=== PATIENT | female | born 1930 | race Hispanic/Latino ===

== ENCOUNTER 2018-06-22 17:54 | Inpatient (IN) | payer MEDICARE ==
[~2018-06-22] VITALS: Ht 160 cm; Wt 58.1 kg
[~2018-06-22 17:54] MED LIST: ASPIR 8181 MG PO; LEVOTHYROXINE100 MCG PO; LOSARTAN-HCTZ1 EAC2 PO; NORCO 5-325 TA1 EACH PO; SIMVASTATIN20 MG PO
--- NOTE | 2018-06-22 18:38 | NUR ---
DR. STEINBERG AT BEDSIDE FOR PT EVAL AT THIS TIME.
--- NOTE | 2018-06-22 18:45 | NUR ---
RADIOLOGY AT BEDSIDE AT THIS TIME.
--- NOTE | 2018-06-22 19:06 | Diagnostic Imaging Report ---
Radiographs of the right foot - 3 views HISTORY: Pain COMPARISON: None available. FINDINGS: Bones: No acute displaced fracture. Diffuse osteopenia. Osseous alignment is within normal limits. Joints: Scattered degenerative change. No osseous erosion. Posterior and inferior calcaneal bone spurs. Soft tissues: Soft tissue swelling IMPRESSION: Diffuse osteopenia, scattered degenerative change and soft tissue swelling. Signed by: Dr. Jeffrey Hampton M.D. on 06/22/2018 7:03 PM
[2018-06-22 19:26] LABS: BASOPHILS # (AUTO) 0.1 (0.0-0.1); EOSINOPHILS # (AUTO) 0.1 (0.0-0.4); EOSINOPHILS % 0.7 % (0.0-6.0); HEMATOCRIT 36.8 % (34.2-44.1); HEMOGLOBIN 11.8 g/dL (12.0-16.0); LYMPHOCYTES # (AUTO) 1.1 (1.0-3.2); LYMPHOCYTES % 10.2 % (18.0-39.1); MEAN CORPUSCULAR HEMOGLOBIN 27.8 pg (28-32); MEAN CORPUSCULAR HGB CONC 32.1 g/dL (31-35); MEAN CORPUSCULAR VOLUME 86.6 fL (81-99); MONOCYTES # (AUTO) 1.1 (0.2-0.8); MONOCYTES % 10.7 % (4.4-11.3); NEUTROPHILS # (AUTO) 7.9 (2.1-6.9); NEUTROPHILS % 76.2 % (38.7-80.0); PLATELET COUNT 146 x10e3/uL (140-360); RED BLOOD COUNT 4.25 x10e6/uL (3.6-5.1); RED CELL DISTRIBUTION WIDTH 15.7 % (11.7-14.4)
[2018-06-22 19:27] LABS: CLARITY,URINE SL CLOUDY (CLEAR); COLOR,URINE YELLOW (YELLOW); LEUKOCYTE ESTERASE ,URINE 1+ (NEGATIVE)
[2018-06-22 19:28] LABS: BILIRUBIN,URINE NEGATIVE (NEGATIVE); KETONES,URINE NEGATIVE (NEGATIVE); NITRITE,URINE NEGATIVE (NEGATIVE); PROTEIN,URINE DIPSTICK NEGATIVE (NEGATIVE); URINE UROBILINOGEN 0.2 mg/dL (0.2 - 1)
--- NOTE | 2018-06-22 19:30 | NUR ---
DR. ALVAREZ AT BEDSIDE AT THIS TIME FOR PT EVAL.
[2018-06-22 19:47] LABS: ALBUMIN 3.8 g/dL (3.5-5.0); ALBUMIN/GLOBULIN RATIO 1.4 (0.8-2.0); ANION GAP 18.4 mmol/L (8-16); CREATININE, SERUM 1.13 mg/dL (0.57-1.11); MAGNESIUM 1.8 MG/DL (1.3-2.1); PHOSPHORUS 2.1 MG/DL (2.3-4.7); POTASSIUM 3.4 mmol/L (3.5-5.1)
[2018-06-22 19:49] LABS: CALCIUM 13.5 mg/dL (8.4-10.2)
[2018-06-22] MEDS ORDERED: DEXTROSE 50% SYRINGE 50 ML IV STA (19:50)
[2018-06-22] MEDS ORDERED: SODIUM CHLORIDE 0.9% 1000ML 1,000 ML IV STA (19:50)
[2018-06-22 19:54] LABS: CREATINE KINASE MB 2.4 ng/mL (0-5.0)
[2018-06-22 20:06] LABS: THYROID STIMULATING HORMONE 0.758 uIU/mL (0.350-4.940)
--- NOTE | 2018-06-22 20:13 | Diagnostic Imaging Report ---
EXAMINATION: CHEST SINGLE (PORTABLE) INDICATION: Fall ^fall ^[id number] ^1952 COMPARISON: None FINDINGS: TUBES and LINES: None. LUNGS: Lungs are well inflated. Perihilar peribronchial hazy opacity could be due to bronchitis. There is no evidence of pneumonia or pulmonary edema. PLEURA: No pleural effusion or pneumothorax. HEART AND MEDIASTINUM: The cardiomediastinal silhouette is unremarkable. BONES AND SOFT TISSUES: No acute osseous lesion. Soft tissues are unremarkable. UPPER ABDOMEN: No free air under the diaphragm. IMPRESSION: Perihilar peribronchial hazy opacity could be due to bronchitis. Signed by: Dr. Jeffrey Hampton M.D. on 06/22/2018 8:10 PM
--- NOTE | 2018-06-22 20:19 | Diagnostic Imaging Report ---
EXAMINATION: Head CT without contrast. HISTORY:Fall COMPARISON:None. TECHNIQUE: Multidetector axial images were obtained from the foramen magnum to the vertex without contrast. The images were reconstructed using brain and bone algorithms. Thin section brain images were reformatted into coronal and sagittal planes. Dose modulation, iterative reconstruction, and/or weight based adjustment of the mA/kV was utilized to reduce the radiation dose to as low as reasonably achievable. Intravenous contrast: None IMAGE QUALITY: Acceptable. FINDINGS: Skull/scalp: No lytic or blastic. lesions. No surgical changes. Parenchyma: There is nonspecific few, scattered supratentorial white matter hypodensity are likely related to small vessel ischemic changes. No acute hemorrhage, mass or acute major vascular territorial infarct. Arteries: No density suggestive of thrombosis. Dural sinuses: No abnormal density suggestive of thrombosis. Ventricles: Mild compensated dilatation due to volume loss. No hydrocephalus. Extra-axial spaces: No abnormal density. Brain volume: Generalized age-related cerebral volume loss. Craniocervical junction: No mass, Chiari malformation, or basilar invagination. Sella: No mass. Paranasal/mastoid sinuses: Mild mucosal thickening in left sphenoid sinus. IMPRESSION: 1. No acute posttraumatic intracranial abnormality. 2. Mild supratentorial white matter microvascular ischemic changes. 3. Generalized age-related cerebral volume loss. Signed by: Dr. Zaynab Bradley M.D. on 06/22/2018 8:15 PM
--- NOTE | 2018-06-22 20:24 | Diagnostic Imaging Report ---
History: Fall. Comparison studies: None Technique: Axial images were obtained through the cervical region.. Coronal and sagittal images reconstructed from the axial data. Dose modulation, iterative reconstruction, and/or weight based adjustment of the mA/kV was utilized to reduce the radiation dose to as low as reasonably achievable. Intravenous contrast: None Findings: Fractures: None. Soft tissue injuries: None. Atlantoaxial articulation: Intact. Alignment: Normal lordosis. No scoliosis. Cervicomedullary junction: No abnormalities. The foramen magnum is patent. Soft tissues: No abnormalities. Vertebrae: No fractures, infection or neoplasm. Degenerative changes: C3-C4: Posterior disc osteophyte complex results in mild canal stenosis. C4-C5: Posterior disc osteophyte complex results in mild canal stenosis. Mild right and moderate left foraminal stenosis due to facet and uncovertebral arthrosis. C5-C6: Moderate degenerative disc disease. Posterior disc osteophyte complex results in mild canal stenosis. Moderate bilateral foraminal stenosis due to facet and uncovertebral arthrosis. C6-C7: Mild degenerative disc disease. Mild left foraminal stenosis due to facet and uncovertebral arthrosis. IMPRESSION: 1. No acute cervical spine fracture or dislocation. 2. Ligament, spinal cord and or vascular abnormalities cannot be excluded on the basis of this examination. 3. Cervical spondylosis as detailed above. Signed by: Dr. Zaynab Bradley M.D. on 06/22/2018 8:20 PM
[2018-06-22 20:50] LABS: INR 1.06; PARTIAL THROMBOPLASTIN TIME 23.2 seconds (23.8-35.5); PROTHROMBIN TIME 14.3 seconds (11.9-14.5)
[2018-06-22] MEDS: CEFTRIAXONE SOD 1 GM/NS 50 ML 50 ML IV SCH (21:02)
[2018-06-22] MEDS ORDERED: D5NS/KCL 20MEQ 1,000 ML IV ONE (21:15)
[2018-06-22] MEDS ORDERED: DEXTROSE 50% SYRINGE 50 ML IV PRN (21:15)
[2018-06-22] MEDS ORDERED: ONDANSETRON HCL INJ 2MG/ML 2ML 2 MG/ML VIAL IV PRN (21:15)
--- OUTSIDE RECORDS SUMMARY | 2018-06-22 21:34 | XMS REPORT ---
[facility] Address Unknown Phone Unavailable Care Team Providers Care Forestry Conservation Worker Name Role Phone Lolly ALVAREZ Unavailable Unavailable Problems This patient has no known problems. Allergies, Adverse Reactions, Alerts This patient has no known allergies or adverse reactions. Medications This patient has no known medications. Results Test Description Test Time Test Comments Text Results Atomic Results Result Comments CT CERVICAL SPINE WO 2018-06-22 20:16:00 [place] [address] Patient Name: GENNA GÓMEZ MR #: [id number] : 1930 Age/Sex: 87/F Req #: [id number] Adm Physician: Ordered by: TREVOR ALVAREZ MD Report #: [id number] Location: ER Room/Bed: Procedure: [id number] CT/CT CERVICAL SPINE WO Exam Date: 06/22/18 Exam Time: 1954 REPORT STATUS: Signed History: Fall. Comparison studies: None T echnique: Axial images were obtained through the cervical region.. Coronal and sagittal images reconstructed from the axial data. Dose modulation, iterative reconstruction, and/or weight based adjustment of the mA/kV was utilized to reduce the radiation dose to as low as reasonably achievable. Intravenous contrast: None Findings: Fractures: None. Soft tissue injuries: None. Atlantoaxial articulation: Intact. Alignment: Normal lordosis. No scoliosis. Cervicomedullary junction: No abnormalities. The foramen magnum is patent. Soft tissues: No abnormalities. Vertebrae: No fractures, infection or neoplasm. Degenerative changes: C3-C4: Posterior disc osteophyte complex results in mild canal stenosis. C4-C5: Posterior disc osteophyte complex results in mild canal stenosis. Mild right and moderate left foraminal stenosis due to facet and uncovertebral arthrosis. C5-C6: Moderate degenerative disc disease. Posterior disc osteophyte complex results in mild canal stenosis. Moderate bilateral foraminal stenosis due to facet and uncovertebral arthrosis. C6-C7: Mild degenerative disc disease. Mild left foraminal stenosis due to facet and uncovertebral arthrosis. IMPRESSION: 1. No acute cervical spine fracture or dislocation. 2. Ligament, spinal cord and or vascular abnormalities cannot be excluded on the basis of this examination. 3. Cervical spondylosis as detailed above. Signed by: Dr. Zaynab Bradley M.D. on 06/22/2018 8:20 PM Dictated By: ZAYNAB BRADLEY MD 19 Transcribed By: SILVINO on 06/22/182019 COPY TO: TREVOR ALVAREZ MD CHEST SINGLE (PORTABLE) 2018-06-22 20:09:00 [place] [address] Patient Name: GENNA GÓMEZ MR #: [id number] : 1930 Age/Sex: 87/F Req #: [id number] Adm Physician: Ordered by: TREVOR ALVAREZ MD Report #: [id number] Location: ER Room/Bed: Procedure: [id number] DX/CHEST SINGLE (PORTABLE) Exam Date: 06/22/18 Exam Time: 1952 REPORT STATUS: Signed EXAMINATION: CHEST SINGLE (PORTABLE) IN DICATION: Fall [id number] COMPARISON: None FINDINGS: TUBES and LINES: None. LUNGS: Lungs are well inflated. Perihilar peribronchial hazy opacity could be due to bronchitis. There is no evidence of pneumonia or pulmonary edema. PLEURA: No pleural effusion or pneumothorax. HEART AND MEDIASTINUM: The cardiomediastinal silhouette is unremarkable. BONES AND SOFT TISSUES: No acute osseous lesion. Soft tissues are unremarkable. UPPER ABDOMEN: No free air under the diaphragm. IMPRESSION: Perihilar peribronchial hazy opacity could be due to bronchitis. Signed by: Dr. Jeffrey Hampton M.D. on 06/22/2018 8:10 PM Dictated By: JEFFREY HAMPTON MD, MD 09 Transcribed By: SILVINO on 06/22/182009 COPY TO: TREVOR ALVAREZ MD CT BRAIN WO 2018-06-22 20:08:00 [place] [address] Patient Name: GENNA GÓMEZ MR #: [id number] : 1930 Age/Sex: 87/F Req #: [id number] Adm Physician: Ordered by: TREVOR ALVAREZ MD Report #: [id number] Location: ER Room/Bed: Procedure: [id number] CT/CT BRAIN WO Exam Date: Exam Time: REPORT STATUS: Signed EXAMINATION: Head CT without contrast. HISTORY:Fall COMPAR DIMITRI:None. TECHNIQUE: Multidetector axial images were obtained from the foramen magnum to the vertex without contrast. The images were reconstructed using brain and bone algorithms. Thin section brain images were reformatted into coronal and sagittal planes. Dose modulation, iterative reconstruction, and/or weight based adjustment of the mA/kV was utilized to reduce the radiation dose to as low as reasonably achievable. Intravenous contrast: None IMAGE QUALITY: Acceptable. FINDINGS: Skull/scalp: No lytic or blastic. lesions. No surgical changes. Parenchyma: There is nonspecific few, scattered supratentorial white matter hypodensity are likely related to small vessel ischemic changes. No acute hemorrhage, mass or acute major vascular territorial infarct. Arteries: No density suggestive of thrombosis. Dural sinuses: No abnormal density suggestive of thrombosis. Ventricles: Mild compensated dilatation due to volume loss. No hydrocephalus. Extra-axial spaces: No abnormal density. Brain volume: Generalized age-related cerebral volume loss. Craniocervical junction: No mass, Chiari malformation, or basilar invagination. Sella: No mass. Paranasal/mastoid sinuses: Mild mucosal thickening in left sphenoid sinus. IMPRESSION: 1. No acute posttraumatic intracranial abnormality. 2. Mild supratentorial white matter microvascular ischemic changes. 3. Generalized age-related cerebral volume loss. Signed by: Dr. Zaynab Bradley M.D. on 06/22/2018 8:15 PM Dictated By: ZAYNAB BRADLEY MD 14 Transcribed By: SILVINO on 06/22/182014 COPY TO: TREVOR ALVAREZ MD FOOT RIGHT COMPLETE 2018-06-22 19:02:00 [place] [address] Patient Name: GENNA GÓMEZ MR #: [id number] : 1930 Age/Sex: 87/F Req #: [id number] Adm Physician: Ordered by: MAURISIO STEINBERG MD Report #: [id number] Location: Room/Bed: Procedure: [id number] DX/FOOT RIGHT COMPLETE Exam Date: 06/22/18 Exam Time: 1845 REPORT STATUS: Signed Radiographs of the right foot - 3 views HISTORY: Pain COMPARISON: None available. FINDINGS: Bones: No acute displaced fracture. Diffuse osteopenia. Osseous alignment is within normal limits. Joints: Scattered degenerative change. No osseous erosion. Posterior and inferior calcaneal bone spurs. Soft tissues: Soft tissue swelling IMPRESSION: Diffuse osteopenia, scattered degenerative change and soft tissue swelling. Signed by: Dr. Jeffrey Hampton M.D. on 06/22/2018 7:03 PM Dictated By: JEFFREY HAMPTON MD, MD 02 Transcribed By: SILVINO on 06/22/181902 COPY TO: MAURISIO STEINBERG MD
--- NOTE | 2018-06-22 22:20 | NUR ---
Patient received via stretcher from ER accompanied by her son. AAO x 2. Admission history obtained mostly from son. Initial physical assessment conducted. Patient oriented to room, call light and plan of care. Fall precautions implemented. Patient instructed to call for assistance when needed. Call light within reach.
[2018-06-22 22:23] VITALS: BP 115/76
[2018-06-22 22:30] VITALS: BP 115/76
[2018-06-22 23:28] VITALS: BP 115/76
[2018-06-22] MEDS ORDERED: METOPROLOL SUCC50 MG PO ×2 (23:38→23:39)
[2018-06-22] MEDS ORDERED: CALTRATE PLUS1 EACH (23:38)
[2018-06-22] MEDS ORDERED: CALTRATE 600 W1 EACH (23:40)
[2018-06-23] VITALS (7 sets, daily range): BP systolic 102–119; BP diastolic 58–74
--- NOTE | 2018-06-23 01:21 | NUR ---
Dr. Benedict Baig here to see patient. New order received.
--- NOTE | 2018-06-23 03:37 | NUR ---
Blood specimen sent to lab for analysis of cardiac enzymes.
[2018-06-23 04:49] LABS: BASOPHILS # (AUTO) 0.1 (0.0-0.1); BASOPHILS % 1.1 % (0.0-1.0); EOSINOPHILS # (AUTO) 0.2 (0.0-0.4); EOSINOPHILS % 2.1 % (0.0-6.0); HEMATOCRIT 32.6 % (34.2-44.1); HEMOGLOBIN 10.4 g/dL (12.0-16.0); LYMPHOCYTES # (AUTO) 1.1 (1.0-3.2); LYMPHOCYTES % 12.7 % (18.0-39.1); MEAN CORPUSCULAR HEMOGLOBIN 27.9 pg (28-32); MEAN CORPUSCULAR HGB CONC 31.9 g/dL (31-35); MEAN CORPUSCULAR VOLUME 87.4 fL (81-99); MONOCYTES % 12.2 % (4.4-11.3); NEUTROPHILS % 70.9 % (38.7-80.0); PLATELET COUNT 118 x10e3/uL (140-360); RED BLOOD COUNT 3.73 x10e6/uL (3.6-5.1); RED CELL DISTRIBUTION WIDTH 15.6 % (11.7-14.4)
[2018-06-23 05:07] LABS: ALANINE AMINOTRANSFERASE 9 IU/L (0-55); ALBUMIN 3.1 g/dL (3.5-5.0); ALBUMIN/GLOBULIN RATIO 1.4 (0.8-2.0); ALKALINE PHOSPHATASE 65 IU/L (40-150); ANION GAP 10.4 mmol/L (8-16); BLOOD UREA NITROGEN 26 mg/dL (7-26); BUN/CREATININE RATIO 31 (6-25); CALCIUM 11.6 mg/dL (8.4-10.2); CARBON DIOXIDE 24 mmol/L (22-29); CHLORIDE 107 mmol/L (98-107); CREATININE, SERUM 0.84 mg/dL (0.57-1.11); EST GLOMERULAR FILTRATION RATE > 60 ML/MIN (60-); GLUCOSE 94 mg/dL (74-118); POTASSIUM 3.4 mmol/L (3.5-5.1); SODIUM 138 mmol/L (136-145)
[2018-06-23] MEDS: CEFTRIAXONE SOD 1 GM/NS 50 ML 50 ML IV SCH ×2 (08:50→21:00)
[2018-06-23 13:16] LABS: CREATINE KINASE MB 2.3 ng/mL (0-5.0)
--- NOTE | 2018-06-23 15:22 | NUR ---
Nutrition Screen Note RD Recommendation for Physician: Continue diet as ordered Plan of Care: RD following, monitoring for adequacy and tolerance Nutrition reason for involvement: Nutrition Risk Trigger - MST Primary Diagnose(s): Dehydration, Fall, hypercalemia, hypoglycemia Ht:63 in Wt:126.19lbs BMI:22.4 kg/m2 IBW:115lbs RD Assessment:(06/23/2018) Initial encounter with patient. Pt was confused and a close friend answered questions at the bedside. Pt has been having a poor Po intake and has been falling more frequently. Pt has lost wt gradually since the beginning of the year, but the actual amount is unknown. Pt does drink Ensure and was willing to drink at least two a day. Pt wears dentures and would benefit from soft foods. No nausea, vomiting or diarrhea at this time Current Diet: Regular diet Malnutrition Evaluation (06/23/2018) The patient does not meet criteria for a specified degree of malnutrition at this time. Will re-evaluate at follow-up as appropriate. Diet Education Needs Assessment: Diet education not indicated. Diet Adequacy: Meeting calorie needs, Meeting protein needs, Meeting fluid needs Tolerance: Tolerating PO Nutrition Care Level: Albin Rolon RD, LD, CNSC
--- NOTE | 2018-06-23 17:54 | NUR ---
Patient alert and responsive, rounds by attending and orders in place for PT eval and treat, voiding and skin care provided, repositioned in bed, tolerated all fluids and will monitor.
--- NOTE | 2018-06-23 19:25 | NUR ---
Patient received lying in bed. AAO x 2 . Patient had no c/o pain. Respirations even and non-labored. Fall precautions implemented. Patient instructed to call for assistance when needed. Call light within reach.
--- NOTE | 2018-06-23 19:57 | NUR ---
Patient's IV on left arm infiltrated. New IV inserted on right hand 20G. Patient tolerated well.
[2018-06-23] MEDS ORDERED: ACETAMINOPHEN 325 MG TAB PO PRN (20:30)
[2018-06-23] MEDS ORDERED: ACETAMINOPHEN/CODEINE 300MG - 30MG TAB PO PRN (20:30)
[2018-06-23] MEDS ORDERED: HYDRALAZINE HCL 20 MG/ML VIAL IV PRN (20:30)
[2018-06-23] MEDS: SIMVASTATIN 20 MG TAB PO SCH (21:00)
[2018-06-24] VITALS (9 sets, daily range): BP systolic 103–134; BP diastolic 55–82
[2018-06-24 05:17] LABS: BASOPHILS # (AUTO) 0.1 (0.0-0.1); BASOPHILS % 0.9 % (0.0-1.0); EOSINOPHILS # (AUTO) 0.2 (0.0-0.4); EOSINOPHILS % 1.9 % (0.0-6.0); HEMATOCRIT 32.8 % (34.2-44.1); HEMOGLOBIN 10.4 g/dL (12.0-16.0); LYMPHOCYTES % 11.6 % (18.0-39.1); MEAN CORPUSCULAR HEMOGLOBIN 27.9 pg (28-32); MEAN CORPUSCULAR HGB CONC 31.7 g/dL (31-35); MEAN CORPUSCULAR VOLUME 87.9 fL (81-99); NEUTROPHILS # (AUTO) 6.2 (2.1-6.9); NEUTROPHILS % 72.7 % (38.7-80.0); PLATELET COUNT 114 x10e3/uL (140-360); RED BLOOD COUNT 3.73 x10e6/uL (3.6-5.1); RED CELL DISTRIBUTION WIDTH 15.9 % (11.7-14.4)
[2018-06-24 05:33] LABS: ANION GAP 12.3 mmol/L (8-16); BLOOD UREA NITROGEN 14 mg/dL (7-26); BUN/CREATININE RATIO 17 (6-25); CALCIUM 11.2 mg/dL (8.4-10.2); CARBON DIOXIDE 22 mmol/L (22-29); CHLORIDE 108 mmol/L (98-107); CREATININE, SERUM 0.81 mg/dL (0.57-1.11); EST GLOMERULAR FILTRATION RATE > 60 ML/MIN (60-); GLUCOSE 80 mg/dL (74-118); POTASSIUM 3.3 mmol/L (3.5-5.1); SODIUM 139 mmol/L (136-145)
--- NOTE | 2018-06-24 06:28 | NUR ---
Patient attempted to get out of bed, pulled telemetry leads off twice and stated" I want to go home". Patient re-oriented to hospital surroundings and plan of care. Patient made comfortable and assisted into a recliner chair.
--- NOTE | 2018-06-24 07:15 | NUR ---
Shift report given to oncoming nurse.
--- NOTE | 2018-06-24 07:41 | NUR ---
Patient alert and appears confused, striping off her telemetry and refusing meds, attempting to climb OOB, attending called to notify at this time but bed alarms in place and will monitor
[2018-06-24] MEDS: LEVOTHYROXINE SODIUM 100 MCG TAB PO SCH (07:45)
--- NOTE | 2018-06-24 09:40 | NUR ---
Call back from Mary Ann and orders for KCL replacement PO
[2018-06-24] MEDS ORDERED: SODIUM PHOSPHATE 3 MMOL/ML INJ IV ONE (09:45)
[2018-06-24] MEDS: METOPROLOL SUCCINATE 50 MG TAB XL PO SCH (09:46)
[2018-06-24] MEDS: ASPIRIN 81 MG CHEW TAB PO SCH (09:46)
[2018-06-24] MEDS: CEFTRIAXONE SOD 1 GM/NS 50 ML 50 ML IV SCH ×2 (09:46→22:16)
[2018-06-24 09:58] LABS: LYMPHOCYTES % (MANUAL) 12 % (19-48); NEUTROPHILS % (MANUAL) 73 % (40-74)
[2018-06-24 09:59] LABS: BAND NEUTROPHILS % (MANUAL) 2 %; EOSINOPHILS % (MANUAL) 2 % (0-7); MONOCYTES % (MANUAL) 11 % (3.4-9.0); PLATELET ESTIMATE SLIGHTLY DECREASED; PLATELET MORPHOLOGY COMMENT NORMAL
[2018-06-24 10:00] LABS: RBC MORPHOLOGY COMMENT NORMAL
[2018-06-24] MEDS ORDERED: POTASSIUM CHLORIDE 20MEQ/15ML UDC PO ONE (10:00)
[2018-06-24] MEDS ORDERED: ONDANSETRON HCL 4 MG ORAL DISINTEGRATING TAB PO PRN (10:30)
[2018-06-24] MEDS ORDERED: SODIUM PHOSPHATE 10 MMOL in SODIUM CHLORIDE 0.9% 250ML 250 ML IV ONE (11:00)
--- NOTE | 2018-06-24 12:30 | NUR ---
Patient attempting to get OOB, assisted OOB and brought to nursing station with staff and then later ambulated with R/W about 50 feet, back to nursing station for supervision.
--- NOTE | 2018-06-24 16:47 | NUR ---
Patient assisted OOB to w/c for dinner, daughter in the room with patient
--- NOTE | 2018-06-24 19:28 | NUR ---
Patient received sitting in W/C by Nursing station. Reason: Several attempts to get out of bed. AAO x 2. No signs of pain or discomfort. Respirations even and unlabored. Will continue to monitor.
[2018-06-24] MEDS: SIMVASTATIN 20 MG TAB PO SCH (22:16)
[2018-06-25] VITALS (7 sets, daily range): BP systolic 88–109; BP diastolic 44–67
[2018-06-25 06:07] LABS: BASOPHILS # (AUTO) 0.1 (0.0-0.1); BASOPHILS % 0.9 % (0.0-1.0); EOSINOPHILS # (AUTO) 0.1 (0.0-0.4); EOSINOPHILS % 1.5 % (0.0-6.0); HEMATOCRIT 32.3 % (34.2-44.1); HEMOGLOBIN 10.2 g/dL (12.0-16.0); LYMPHOCYTES % 12.7 % (18.0-39.1); MEAN CORPUSCULAR HEMOGLOBIN 27.9 pg (28-32); MEAN CORPUSCULAR HGB CONC 31.6 g/dL (31-35); MEAN CORPUSCULAR VOLUME 88.5 fL (81-99); MONOCYTES # (AUTO) 0.9 (0.2-0.8); MONOCYTES % 11.9 % (4.4-11.3); NEUTROPHILS # (AUTO) 5.6 (2.1-6.9); PLATELET COUNT 107 x10e3/uL (140-360); RED BLOOD COUNT 3.65 x10e6/uL (3.6-5.1); RED CELL DISTRIBUTION WIDTH 16.2 % (11.7-14.4)
[2018-06-25 06:19] LABS: ANION GAP 11.5 mmol/L (8-16); BLOOD UREA NITROGEN 16 mg/dL (7-26); BUN/CREATININE RATIO 21 (6-25); CALCIUM 10.9 mg/dL (8.4-10.2); CARBON DIOXIDE 23 mmol/L (22-29); CHLORIDE 108 mmol/L (98-107); CREATININE, SERUM 0.77 mg/dL (0.57-1.11); EST GLOMERULAR FILTRATION RATE > 60 ML/MIN (60-); GLUCOSE 82 mg/dL (74-118); PHOSPHORUS 2.1 MG/DL (2.3-4.7); POTASSIUM 3.5 mmol/L (3.5-5.1); SODIUM 139 mmol/L (136-145)
[2018-06-25 08:19] LABS: CALCIUM IONIZED 1.5 mmol/L (1.09-1.30)
[2018-06-25] MEDS: ASPIRIN 81 MG CHEW TAB PO SCH (08:41)
[2018-06-25] MEDS: CEFTRIAXONE SOD 1 GM/NS 50 ML 50 ML IV SCH ×2 (08:41→21:50)
[2018-06-25] MEDS: LEVOTHYROXINE SODIUM 100 MCG TAB PO SCH (08:42)
[2018-06-25] MEDS: METOPROLOL SUCCINATE 50 MG TAB XL PO SCH (08:43)
--- NOTE | 2018-06-25 15:30 | NUR ---
Nutrition Screen Note RD Recommendation for Physician: -Continue regular diet. Plan of Care: RD following, monitoring for tolerance and adequacy Nutrition reason for involvement: MD consult/follow up Primary Diagnose(s): Dehydration, fall ,hyperglycemia, hypoglycemia PMH: Nothing recorded in H and P. Ht: 63 in Wt: 121 lb BMI: 21.5 kg/m2 IBW: [address] Assessment: (06/25) 87 YOF admitted for dehydration, fall, hyper and hypoglycemia. Pt is currently confused and altered, has an aide at bedside. Pt could not answer any questions, but aide reported pt only had a couple of bites of her B, today. Received MD consult regarding pt on 06/23, with no specific consult type recorded. Pt was seen by fellow dietitian earlier that day. Spoke to nurse about consult; she was unaware. Saw Ensure Enlive at bedside, aide reports pt sometimes drinks it. Spoke with nurse about possibly starting Ensure supplement and getting an order from MD, so pt can start getting it twice a day, nurse verbalized understanding and reported she would order supplement. No past weight records in EMR, pt did have signs of clavicle and temporal muscle wasting. Discussed in rounds: possible d/c today. Chart reviewed. Labs and meds reviewed. POC-gluc: 75-88. Will continue to monitor. (06/23/2018) Initial encounter with patient. Pt was confused and a close friend answered questions at the bedside. Pt has been having a poor Po intake and has been falling more frequently. Pt has lost wt gradually since the beginning of the year, but the actual amount is unknown. Pt does drink Ensure and was willing to drink at least two a day. Pt wears dentures and would benefit from soft foods. No nausea, vomiting or diarrhea at this time Malnutrition Evaluation (date of eval) The patient does not meet criteria for a specified degree of malnutrition at this time. Will re-evaluate at follow-up as appropriate. Diet Education Needs Assessment: Diet education not indicated. Pt is on regular diet. Nutrition Care Level: low Signed: Gloria Myrick RD, LD Addendum: 06/25/18 at [address] DIET [address] recommendation for physician: -Ensure Enlive BID. Nutrition care level- MOD
[2018-06-25] MEDS ORDERED: POTASSIUM PHOSPHATE 20 MM in SODIUM CHLORIDE 0.9% 250ML 250 ML IV SCH (17:15)
--- NOTE | 2018-06-25 19:11 | NUR ---
bedside rounds done with oncoming nurse, pt lying in bed call light within reach. bed in low and locked position. bed alarm on.
[2018-06-25] MEDS: SIMVASTATIN 20 MG TAB PO SCH (21:34)
[2018-06-26] VITALS: BP 101/49
[2018-06-26 04:00] VITALS: BP 129/60
[2018-06-26 08:30] VITALS: BP 111/59
[2018-06-26] MEDS: ASPIRIN 81 MG CHEW TAB PO SCH (08:53)
[2018-06-26] MEDS: LEVOTHYROXINE SODIUM 100 MCG TAB PO SCH (08:53)
[2018-06-26] MEDS: PANTOPRAZOLE SOD 40 MG TABEC PO SCH (08:53)
[2018-06-26] MEDS: METOPROLOL SUCCINATE 50 MG TAB XL PO SCH (08:54)
[2018-06-26] MEDS: CEFTRIAXONE SOD 1 GM/NS 50 ML 50 ML IV SCH ×2 (08:57→20:55)
[2018-06-26 12:30] VITALS: BP 100/57
[2018-06-26 16:33] VITALS: BP 99/60
[2018-06-26] MEDS ORDERED: SODIUM CHLORIDE 0.9% 500ML 500 ML IV SCH (16:45)
--- NOTE | 2018-06-26 17:10 | NUR ---
SOCIAL WORK INITIAL ASSESSMENT [employer] Concierge to bedside to discuss plan of care with patient/family. CM/SW role and care transitions discussed. Anticipated discharge plan discussed along with duration of care. CM/SW discussed patients right to make decisions in care. CM/SW work hours given. Patient lives: IN HOME WITH SON Admit/Transfer: VIA ED AFTER FALL AT HOME POA/Emergency contact: SON IS SCOTTIE [phone] Current/Previous Home Health: NONE PCP/Follow-up Care: BEENA Current/Previous DME: [facility] Other Services: NA Employment Status: RETIRED Areas of Concerns: WAS INDEPENDENT PRIOR TO ADMISSION Referral Needs: REHAB VERSES SNF Education Needs: NONE IMM/OROPEZA given and signed (if applicable): Goal for discharge: REHAB CM/SW left business card at the bedside with contact information. Name and number was also written on the patients whiteboard. Patient verbalized understanding of discussion. CM will follow-up with ongoing discharge and transition of care needs.
[2018-06-26 17:12] LABS: BASOPHILS # (AUTO) 0.1 (0.0-0.1); BASOPHILS % 0.7 % (0.0-1.0); EOSINOPHILS # (AUTO) 0.1 (0.0-0.4); EOSINOPHILS % 1.4 % (0.0-6.0); HEMATOCRIT 32.3 % (34.2-44.1); HEMOGLOBIN 10.1 g/dL (12.0-16.0); LYMPHOCYTES # (AUTO) 1.4 (1.0-3.2); LYMPHOCYTES % 14.1 % (18.0-39.1); MEAN CORPUSCULAR HEMOGLOBIN 27.6 pg (28-32); MEAN CORPUSCULAR HGB CONC 31.3 g/dL (31-35); MEAN CORPUSCULAR VOLUME 88.3 fL (81-99); MONOCYTES % 10.6 % (4.4-11.3); NEUTROPHILS % 72.3 % (38.7-80.0); PLATELET COUNT 105 x10e3/uL (140-360); RED BLOOD COUNT 3.66 x10e6/uL (3.6-5.1); RED CELL DISTRIBUTION WIDTH 16.2 % (11.7-14.4)
--- NOTE | 2018-06-26 17:13 | NUR ---
SPOKE WIHT SON WHOM IS CONCERNED WITH MOTHERS CONDITION. HE STATES SHE ORIGINALLY FELL 3-4 WEEKS AGO AND BRUISED HER TOE, UNSURE IF HIT HEAD AT THAT TIME AND HAD ANOTHER FALL WHERE SHE "FACE PLANTED" AT HOME TO GET HER HERE THIS TIME. HE STATES SHE WAS ALERT AND ORIENTED UP UNTIL THE DAY OF LAST FALL BUT THAT SHE HAS GOTTEN WEAKER EATEN LESS AND STOPPED DOING MUCH FROM THE FIRST FALL. HE STATES THAT SHE LIVES WITH HIM AND HE IS ONLY OFF 2 DAYS A WEEK AND NEEDS HER BACK TO INDEPENDENT LEVEL WITHOUT THE CONFUSION. HE STATES THAT HE IS IN AGREEMENT FOR A INPATIENT REHAB GAVE CHOICES OF [facility] AND [facility] [place]. HE STATES HE REALLY WOULD LIKE FOR HER TO GO TO [facility] IN [place]. SIGNED CHOICE LETTER AND FILED IN CHART.
[2018-06-26 17:27] LABS: ANION GAP 13.7 mmol/L (8-16); BLOOD UREA NITROGEN 14 mg/dL (7-26); BUN/CREATININE RATIO 18 (6-25); CALCIUM 10.8 mg/dL (8.4-10.2); CARBON DIOXIDE 22 mmol/L (22-29); CHLORIDE 107 mmol/L (98-107); CREATININE, SERUM 0.77 mg/dL (0.57-1.11); EST GLOMERULAR FILTRATION RATE > 60 ML/MIN (60-); GLUCOSE 69 mg/dL (74-118); MAGNESIUM 1.3 MG/DL (1.3-2.1); PHOSPHORUS 1.8 MG/DL (2.3-4.7); POTASSIUM 3.7 mmol/L (3.5-5.1); SODIUM 139 mmol/L (136-145)
--- NOTE | 2018-06-26 18:19 | Diagnostic Imaging Report ---
EXAMINATION: CHEST 2 VIEWS INDICATION: Bronchitis ^eval bronchitis, haziness seen on admission CXR ^[id number] ^1800 ^Y COMPARISON: 06/22/2018 FINDINGS: TUBES and LINES: None. LUNGS: Lungs are well inflated. Perihilar peribronchial hazy opacity could be due to bronchitis.. There is no evidence of pneumonia or pulmonary edema. PLEURA: No pleural effusion or pneumothorax. HEART AND MEDIASTINUM: The cardiomediastinal silhouette is unremarkable. BONES AND SOFT TISSUES: No acute osseous lesion. Soft tissues are unremarkable. UPPER ABDOMEN: No free air under the diaphragm. IMPRESSION: Perihilar peribronchial hazy opacity could be due to bronchitis. Signed by: Dr. Jeffrey Hampton M.D. on 06/26/2018 6:16 PM
--- NOTE | 2018-06-26 19:54 | NUR ---
report given to oncoming nurse for continued care.
[2018-06-26 20:00] VITALS: BP 105/57
[2018-06-26] MEDS ORDERED: SODIUM CHLORIDE 0.9% 250ML 250 ML ONE (20:53)
[2018-06-26] MEDS: SIMVASTATIN 20 MG TAB PO SCH (20:55)
[2018-06-27] VITALS (8 sets, daily range): BP systolic 99–132; BP diastolic 55–61
[2018-06-27] MEDS ORDERED: MAGNESIUM SULFATE 2GM/50ML 100 ML IV ONE (02:30)
[2018-06-27] MEDS ORDERED: POTASSIUM PHOSPHATE 20 MM in SODIUM CHLORIDE 0.9% 250ML 250 ML IV SCH (02:30)
--- NOTE | 2018-06-27 08:15 | NUR ---
FSBG 65. [place] juice given to patient. Patient eating breakfast at this time.
--- NOTE | 2018-06-27 08:18 | NUR ---
Jennifer with [facility] came and picked up clinicals.
[2018-06-27] MEDS: ASPIRIN 81 MG CHEW TAB PO SCH (09:07)
[2018-06-27] MEDS: PHOSPHORUS 250 MG TAB PO SCH (09:07)
[2018-06-27] MEDS: CEFTRIAXONE SOD 1 GM/NS 50 ML 50 ML IV SCH ×2 (09:07→21:46)
[2018-06-27] MEDS: PANTOPRAZOLE SOD 40 MG TABEC PO SCH (09:07)
[2018-06-27] MEDS: LEVOTHYROXINE SODIUM 100 MCG TAB PO SCH (09:08)
[2018-06-27] MEDS: MEGESTROL ACETATE 40 MG TAB PO SCH ×2 (09:08→16:44)
[2018-06-27] MEDS: METOPROLOL SUCCINATE 50 MG TAB XL PO SCH (09:08)
--- NOTE | 2018-06-27 09:21 | NUR ---
FSBG 88. No s/s of acute distress noted
[2018-06-27] MEDS ORDERED: HALOPERIDOL LACTATE 5 MG/ML VIAL IM PRN (17:00)
[2018-06-27] MEDS ORDERED: RISPERIDONE 0.5 MG TAB PO PRN (17:00)
--- NOTE | 2018-06-27 19:05 | NUR ---
Report given to oncoming nurse. Resting in bed. NO s/s of acute distress noted. Side rails upx2, call light within reach, bed alarm on.
--- NOTE | 2018-06-27 21:26 | Consultation ---
DATE OF CONSULTATION: 06/27/2018 Psychiatric Consultation. REASON FOR CONSULTATION: To evaluate the patient for confusion and psychosis. HISTORY OF PRESENT ILLNESS: The patient is an 87-year-old female, admitted to the hospital for dehydration and hypercalcemia. Psychiatric consultation was called to evaluate the patient's mood and psychosis. As per medical record, the patient fell at home, requiring a splint. As per nursing staff, the patient lives with her son. The patient has been more confused for the last 3 weeks. The patient has not been agitated. Her appetite has been poor. Megace has been added. Plan is 06/27/2018 to go to a rehab facility. Upon evaluation today, the patient is found to be in the room with the son. She is alert, awake, and oriented to situation, place, and year. She is calm, cooperative. She is sitting up in the bed and eating dinner. She denies any depression. Denies anxiety. She denies any hallucination. She denies any problem with sleep or appetite. She denies feeling hopeless or helpless. She denies any hallucination. At times, she is unable to answer question meaningfully. There are some periods of confusion. As per the son, the patient was living with him. She is pretty much independent with all her ADLs. Prior 2-3 weeks ago, she was paying the bills, she has not been driving for many years as per the son. However lately, she has been more confused, especially starting on Monday. However, he has noticed that her confusion has reduced since Monday. He admits that her appetite has been poor. PAST PSYCHIATRIC HISTORY: The patient denies past psychiatric history. She denies past suicide attempts. She denies alcohol or drug use. FAMILY HISTORY: Denies. SOCIAL HISTORY: The patient states she lives with her son. MENTAL STATUS EXAM: The patient is an elderly female. She is alert, awake, and oriented to situation. Mood is fair. She denies any suicidal or homicidal ideation. She denies any hallucination. Thought process is concrete. No delusion elicited. Insight and judgment are limited to fair. Memory appears to be grossly intact. MEDICATIONS: 1. Megace. 2. Toprol. 3. Synthroid. 4. . 5. Pantoprazole. 6. Aspirin. 7. Ceftriaxone. 8. Simvastatin. 9. Potassium. 10. Sodium chloride. 11. Ondansetron. 12. Acetaminophen/codeine. 13. Hydralazine. 14. Dextrose. LABS: WBC 9.66, RBC 3.66, hemoglobin 10.1, hematocrit 32.3, platelets 105. Chemistry, sodium is 139, potassium 3.7, chloride 107, CO2 of 22, BUN 14, creatinine 0.77. AST 31, ALT 9. ASSESSMENT: 1. Unspecified psychosis. 2. Rule Out Dementia. PLAN: 1. Add Haldol 1 mg IM q.6 hours p.r.n. 2. Add Risperdal 0.5 mg p.o. b.i.d. p.r.n. 3. Monitor for mood and confusion and psychosis. 4. Supportive therapy. Thank you for this consultation. Dictated by Kristen Pandya PA-C MD BARBARA MalhotraV/SHARON /[id number]
[2018-06-27] MEDS: SIMVASTATIN 20 MG TAB PO SCH (21:46)
[2018-06-28] VITALS: BP 117/64
[2018-06-28 04:00] VITALS: BP 99/62
[2018-06-28 05:36] LABS: BASOPHILS # (AUTO) 0.1 (0.0-0.1); BASOPHILS % 0.8 % (0.0-1.0); EOSINOPHILS # (AUTO) 0.2 (0.0-0.4); EOSINOPHILS % 2.7 % (0.0-6.0); HEMATOCRIT 31.4 % (34.2-44.1); HEMOGLOBIN 10.1 g/dL (12.0-16.0); LYMPHOCYTES # (AUTO) 1.1 (1.0-3.2); LYMPHOCYTES % 12.9 % (18.0-39.1); MEAN CORPUSCULAR HEMOGLOBIN 28.5 pg (28-32); MEAN CORPUSCULAR HGB CONC 32.2 g/dL (31-35); MEAN CORPUSCULAR VOLUME 88.5 fL (81-99); MONOCYTES % 11.5 % (4.4-11.3); NEUTROPHILS # (AUTO) 6.1 (2.1-6.9); NEUTROPHILS % 70.8 % (38.7-80.0); PLATELET COUNT 102 x10e3/uL (140-360); RED BLOOD COUNT 3.55 x10e6/uL (3.6-5.1); RED CELL DISTRIBUTION WIDTH 16.2 % (11.7-14.4)
[2018-06-28 05:49] LABS: ANION GAP 11.4 mmol/L (8-16); BLOOD UREA NITROGEN 11 mg/dL (7-26); BUN/CREATININE RATIO 15 (6-25); CALCIUM 9.7 mg/dL (8.4-10.2); CARBON DIOXIDE 23 mmol/L (22-29); CHLORIDE 108 mmol/L (98-107); CREATININE, SERUM 0.73 mg/dL (0.57-1.11); EST GLOMERULAR FILTRATION RATE > 60 ML/MIN (60-); GLUCOSE 71 mg/dL (74-118); MAGNESIUM 1.8 MG/DL (1.3-2.1); PHOSPHORUS 1.9 MG/DL (2.3-4.7); POTASSIUM 3.4 mmol/L (3.5-5.1); SODIUM 139 mmol/L (136-145)
[2018-06-28 08:00] VITALS: BP 117/66
[2018-06-28] MEDS ORDERED: POTASSIUM CHLORIDE 20 MEQ TAB CR PO STA (08:02)
[2018-06-28 08:08] VITALS: BP 117/66
[2018-06-28] MEDS ORDERED: POTASSIUM PHOSPHATE 20 MM in SODIUM CHLORIDE 0.9% 250ML 250 ML IV SCH (08:15)
--- NOTE | 2018-06-28 08:30 | NUR ---
FSBG 66. [place]ANGE JUICE GIVEN. PATIENT EATING BREAKFAST
[2018-06-28] MEDS ORDERED: SODIUM CHLORIDE 0.9% 250ML 250 ML ONE (09:48)
--- NOTE | 2018-06-28 10:00 | NUR ---
FSBG 76. WILL CONTINUE TO MONITOR
[2018-06-28] MEDS: CEFTRIAXONE SOD 1 GM/NS 50 ML 50 ML IV SCH (10:10)
[2018-06-28] MEDS: METOPROLOL SUCCINATE 50 MG TAB XL PO SCH (10:10)
[2018-06-28] MEDS: MEGESTROL ACETATE 40 MG TAB PO SCH ×2 (10:10→15:19)
[2018-06-28] MEDS: PANTOPRAZOLE SOD 40 MG TABEC PO SCH (10:10)
[2018-06-28] MEDS: PHOSPHORUS 250 MG TAB PO SCH (10:10)
[2018-06-28] MEDS: ASPIRIN 81 MG CHEW TAB PO SCH (10:10)
[2018-06-28] MEDS: LEVOTHYROXINE SODIUM 100 MCG TAB PO SCH (10:10)
--- NOTE | 2018-06-28 10:40 | NUR ---
Received MOT from Jennifer Griffin with [address] [place] [address] Dr. Pratik Matthew Admin: Roosevelt Roche Pt to transfer after 2pm. MOT completed and placed at nurses station. RON Amos was informed. CM called and spoke to pt's son and informed him of bed assignment. He gave consent to transfer.
--- NOTE | 2018-06-28 11:44 | NUR ---
WOUND CARE - PUP SCREEN E[place]stley Score 17 Moderate PUP Active LOS = 5 days Alternating Pressure Air Mattress in place and set to current weight 87 year old Female Patient sitting out of bed on chair. Able to turn self. RECOMMENDATIONS: Continue Moderate PUP Protocol Addendum: 06/28/18 at 1147 by Jaiden Turpin RN Amended: Links added.
[2018-06-28 12:22] VITALS: BP 114/67
--- NOTE | 2018-06-28 15:04 | NUR ---
Report called to [facility] and given to Josi Moreno LVN
[2018-06-28 16:21] VITALS: BP 100/62
--- NOTE | 2018-06-28 16:21 | Progress Note ---
DATE: 06/28/2018 Psychiatric Progress Note SUBJECTIVE: The patient evaluated and events noted. The patient is in the room. She is alert, awake and oriented to situation. She is not confused. She is calm and cooperative. She reports feeling better. She denies any depression. Denies anxiety. She denies any hallucination. She denies any side effects from medication. The patient is doing better. MENTAL STATUS EXAM: The patient is an elderly female. She is alert, awake, and oriented to situation. Mood is fair. She denies any suicidal or homicidal ideation. She denies any hallucination. Thought process is concrete. No delusion elicited. Insight and judgment are fair. Memory appears to be grossly intact. ASSESSMENT: 1. Unspecified psychosis. 2. Rule out Dementia. PLAN: 1. Continue Haldol 1 mg IM q.6 hours p.r.n. 2. Continue Risperdal 0.5 mg p.o. b.i.d. p.r.n. 3. Monitor for mood. 4. Supportive therapy. Dictated by Kristen Pandya PA-C Nando Abebe MD QTV/MODL /[id number]
--- NOTE | 2018-06-28 17:00 | NUR ---
Taken via stretcher by [facility]. AAOX3 to time, person, place. Respirations even and unlabored. Right hand IV clean, dry, and intact. No signs of infiltration noted. Son at bedside. All personal belongings take with patient. Transfer package given to [facility].
--- NOTE | 2018-07-02 14:09 | Discharge Summary ---
ADMISSION DIAGNOSES: Urinary tract infection, hypercalcemia, hypoglycemia, and hypokalemia. DISCHARGE DIAGNOSES: Urinary tract infection, hypercalcemia, hypoglycemia, hypokalemia, hypothyroidism, hyperlipidemia, and hypertension. HISTORY: The patient has a history of hypertension, hyperlipidemia, and hypothyroidism. SURGICAL HISTORY: Noncontributory. HOSPITAL COURSE: An 87-year-old female presents after a fall. She is confused, so history was obtained from previous records. On admission, the patient was found to have a UTI and was started on Rocephin. Right foot x-ray showed diffuse osteopenia, scattered degenerative change, and soft tissue swelling. Chest x-ray showed peribronchial hazy opacity could be due to bronchitis. CT of the C-spine showed no acute fracture or dislocation. CT of the brain showed no acute abnormality. Due to intermittent confusion, Psych was consulted, who ordered p.r.n. Haldol and Risperdal. The patient lives at home with her son, but he works a lot, so he needs her to be back to baseline before going home. So, the patient will go to inpatient rehab for more physical therapy. Blood cultures were negative. Urine culture came back positive for E coli. The patient will discharge to [facility] for physical therapy and 1-2 more days of IV antibiotics for urine infection. The patient understands discharge instructions and agrees to plan. Vital signs stable, patient afebrile. Dictated by Ailyn Clarke NP MD LUIS Ruiz/MODL /[id number]
== END 2018-06-28 17:02 | DRG 689 ==
LOC: ER 17:54 → ERHOLD 21:31 → MED/SURG2 22:17
PROVIDERS: ADMIT Internal Medicine; ATTEND Internal Medicine
DX: N39.0 Urinary tract infection, site not specified (principal); G93.41 Metabolic encephalopathy; E83.52 Hypercalcemia; I10 Essential (primary) hypertension; M85.871 Other specified disorders of bone density and structure, right ankle and foot; B96.20 Unspecified Escherichia coli [E. coli] as the cause of diseases classified elsewhere; E87.6 Hypokalemia; E83.39 Other disorders of phosphorus metabolism; R26.9 Unspecified abnormalities of gait and mobility; D69.6 Thrombocytopenia, unspecified
CPT/HCPCS: 36415; 70450; 71045; 71046; 72125; 80048; 80053; 81001; 82140; 82330; 82550; 82553; 82746; 82948; 83519; 83735; 83970; 84100; 84443; 84484; 85025; 85610; 85651; 85730; 87040; 87086; 87186; 93005; 97139; 99285; J0696; J3475; J7030; J7050; J7799

== ENCOUNTER 2018-08-24 13:29 | Inpatient (IN) | payer MEDICARE ==
[~2018-08-24] VITALS: Ht 160 cm; Wt 60.0 kg
[~2018-08-24 13:29] MED LIST changes: +CALTRATE 600 W1 EACH; +CALTRATE PLUS1 EACH; +METOPROLOL SUCC50 MG PO
[2018-08-24] MEDS ORDERED: SODIUM CHLORIDE 0.9% 1000ML 1,000 ML IV STA (13:45)
[2018-08-24 14:23] LABS: BILIRUBIN,URINE NEGATIVE (NEGATIVE); CLARITY,URINE SL CLOUDY (CLEAR); COLOR,URINE YELLOW (YELLOW); KETONES,URINE TRACE (NEGATIVE); LEUKOCYTE ESTERASE ,URINE SMALL (NEGATIVE); NITRITE,URINE NEGATIVE (NEGATIVE); PROTEIN,URINE DIPSTICK 1+ (NEGATIVE); URINE UROBILINOGEN 0.2 mg/dL (0.2 - 1)
[2018-08-24 14:35] LABS: AMORPHOUS SEDIMENT,URINE MODERATE (FEW); BACTERIA,URINE MANY /HPF; EPITHELIAL CELLS,URINE FEW /LPF
[2018-08-24 15:02] LABS: BASOPHILS # (AUTO) 0.2 (0.0-0.1); BASOPHILS % 1.1 % (0.0-1.0); EOSINOPHILS # (AUTO) 0.1 (0.0-0.4); EOSINOPHILS % 0.5 % (0.0-6.0); HEMOGLOBIN 11.1 g/dL (12.0-16.0); LYMPHOCYTES # (AUTO) 1.1 (1.0-3.2); LYMPHOCYTES % 7.9 % (18.0-39.1); MEAN CORPUSCULAR HEMOGLOBIN 28.7 pg (28-32); MEAN CORPUSCULAR HGB CONC 32.6 g/dL (31-35); MEAN CORPUSCULAR VOLUME 87.9 fL (81-99); MONOCYTES # (AUTO) 1.2 (0.2-0.8); MONOCYTES % 8.2 % (4.4-11.3); NEUTROPHILS # (AUTO) 11.4 (2.1-6.9); NEUTROPHILS % 80.3 % (38.7-80.0); PLATELET COUNT 243 x10e3/uL (140-360); RED BLOOD COUNT 3.87 x10e6/uL (3.6-5.1); RED CELL DISTRIBUTION WIDTH 15.8 % (11.7-14.4)
[2018-08-24 15:06] LABS: INR 0.92; PROTHROMBIN TIME 12.9 seconds (11.9-14.5)
[2018-08-24 15:07] LABS: PARTIAL THROMBOPLASTIN TIME 30.8 seconds (23.8-35.5)
--- NOTE | 2018-08-24 15:11 | Diagnostic Imaging Report ---
Examination: Single AP view of the chest. COMPARISON: June 26, 2018 INDICATION: Increased weakness and confusion DISCUSSION: Lines/tubes: None. Lungs: Age-related interstitial change. No focal pneumonia. Pleura: No pleural effusion or pneumothorax. Heart and mediastinum: The heart and the mediastinum are unremarkable. Bones and soft tissues: No acute bony abnormalities. IMPRESSION: 1. No acute cardiopulmonary abnormalities. Signed by: Dr. Dave Ardon M.D. on 08/24/2018 3:08 PM
[2018-08-24 15:17] LABS: ALANINE AMINOTRANSFERASE 11 IU/L (0-55); ALBUMIN 3.2 g/dL (3.5-5.0); ALBUMIN/GLOBULIN RATIO 1.1 (0.8-2.0); ALKALINE PHOSPHATASE 107 IU/L (40-150); ANION GAP 16.2 mmol/L (8-16); BLOOD UREA NITROGEN 14 mg/dL (7-26); BUN/CREATININE RATIO 17 (6-25); CALCIUM 12.7 mg/dL (8.4-10.2); CARBON DIOXIDE 25 mmol/L (22-29); CHLORIDE 93 mmol/L (98-107); CREATINE KINASE 15 IU/L (29-168); CREATININE, SERUM 0.81 mg/dL (0.57-1.11); EST GLOMERULAR FILTRATION RATE > 60 ML/MIN (60-); GLUCOSE 63 mg/dL (74-118); POTASSIUM 3.2 mmol/L (3.5-5.1); SODIUM 131 mmol/L (136-145)
[2018-08-24] MEDS ORDERED: KCL 20MEQ/.9 SOD CHL 1,000 ML IV ONE (15:45)
[2018-08-24] MEDS ORDERED: ONDANSETRON HCL INJ 2MG/ML 2ML 2 MG/ML VIAL IV PRN (16:00)
[2018-08-24] MEDS ORDERED: DEXTROSE 50% SYRINGE 50 ML IV ONE (16:00)
[2018-08-24] MEDS ORDERED: POTASSIUM CHLORIDE 10MEQ/100ML 200 ML IV ONE (16:00)
[2018-08-24] MEDS: CEFTRIAXONE SOD 1 GM/NS 50 ML 50 ML IV SCH (16:41)
[2018-08-24] MEDS ORDERED: LOPRESSOR25 MG PO (17:06)
[2018-08-24] MEDS ORDERED: FAMOTIDINE20 MG PO (17:06)
[2018-08-24] MEDS ORDERED: ALLOPURINOL100 MG PO (17:06)
[2018-08-24] MEDS ORDERED: MIRTAZAPINE15 MG PO (17:06)
[2018-08-24 17:38] VITALS: BP 114/63
--- NOTE | 2018-08-24 17:40 | NUR ---
PATIENT ARRIVED TO ROOM 299 IN STABLE CONDITION, SON AT BEDSIDE. PATIENT IS AAOX1, CONFUSED. ORIENTED PATIENT AND SON TO POLICIES AND PROCEDURES. ADMISSION HX AND PHYSICAL ASSESSMENT COMPLETED AND DOCUMENTED. CALL LIGHT WITHIN REACH. BED IN THE LOWEST POSITION.
[2018-08-24] MEDS: D5NS/KCL 20MEQ 1,000 ML IV SCH ×2 (18:32→23:45)
--- NOTE | 2018-08-24 19:00 | NUR ---
CALLED DR. PARMAR FOR LACTIC ACID OF 29.9. PER KAREN RAMIREZ NP. CONSULT DR. WHATLEY, REPEAT LACTIC ACID Q2H X 3 AND CALL HER WITH EACH RESULT.
--- NOTE | 2018-08-24 19:13 | NUR ---
REPORT GIVEN TO ONCOMING NURSE, WALKING ROUNDS DONE. PATIENT IS RESTING IN BED. NO ACUTE DISTRESS NOTED. SON AT BEDSIDE. CALL LIGHT WITHIN REACH. BED IN THE LOWEST POSITION.
[2018-08-24] MEDS ORDERED: ACETAMINOPHEN 325 MG TAB PO PRN (19:30)
[2018-08-24] MEDS ORDERED: HYDRALAZINE HCL 20 MG/ML VIAL IV PRN (19:30)
[2018-08-24] MEDS ORDERED: POTASSIUM CHLORIDE 20 MEQ TAB CR PO ONE (19:45)
[2018-08-24 20:26] VITALS: BP 121/60
[2018-08-24] MEDS: MIRTAZAPINE 15 MG TAB PO SCH (20:44)
[2018-08-24] MEDS: SIMVASTATIN 20 MG TAB PO SCH (20:44)
[2018-08-24 20:45] VITALS: BP 121/60
--- NOTE | 2018-08-24 21:59 | NUR ---
Informed Dr. Jez BAKER of the lactic acid results for the patient. The patient's lactic at this time is 32.8 up from 29 a few hours ago. informed her of the IV antibiotics the patient is on. WBC 14.19. Patient is in bed able to answer questions, got her up to the restroom, vital signs stable. Informed to redraw in 3hrs and call her with the results. Addendum: 08/25/18 at 0209 by Jossie Gross RN Dr. Jez Cruz
[2018-08-25] VITALS (9 sets, daily range): BP systolic 92–126; BP diastolic 52–61
--- NOTE | 2018-08-25 | NUR ---
patient in bed on her right side, resting with eyes closed. No complaints at this time.
--- NOTE | 2018-08-25 02:07 | NUR ---
called Dr. Story's BRICKMASON APPRENTICE to report the lactic of 34.8. She said OK when asked if she would like to have the last one drawn she stated yes. Next Lactic will be at 5 am. Will report results at that time. The vitals signs taken at this time is BP 108/61, HR 89, Temp 97.7 Addendum: 08/25/18 at 0209 by Jossie Gross RN Dr. Story's BRICKMASON APPRENTICE Catrachita Cruz
[2018-08-25] MEDS: D5NS/KCL 20MEQ 1,000 ML IV SCH ×3 (04:00→22:13)
[2018-08-25] MEDS: CEFTRIAXONE SOD 1 GM/NS 50 ML 50 ML IV SCH ×2 (04:09→15:37)
[2018-08-25 05:30] LABS: BASOPHILS # (AUTO) 0.1 (0.0-0.1); BASOPHILS % 0.9 % (0.0-1.0); EOSINOPHILS # (AUTO) 0.2 (0.0-0.4); EOSINOPHILS % 1.2 % (0.0-6.0); HEMATOCRIT 30.1 % (34.2-44.1); HEMOGLOBIN 9.6 g/dL (12.0-16.0); LYMPHOCYTES # (AUTO) 0.7 (1.0-3.2); LYMPHOCYTES % 5.4 % (18.0-39.1); MEAN CORPUSCULAR HEMOGLOBIN 28.5 pg (28-32); MEAN CORPUSCULAR HGB CONC 31.9 g/dL (31-35); MEAN CORPUSCULAR VOLUME 89.3 fL (81-99); MONOCYTES # (AUTO) 1.1 (0.2-0.8); MONOCYTES % 8.1 % (4.4-11.3); NEUTROPHILS # (AUTO) 10.8 (2.1-6.9); NEUTROPHILS % 82.6 % (38.7-80.0); PLATELET COUNT 208 x10e3/uL (140-360); RED BLOOD COUNT 3.37 x10e6/uL (3.6-5.1); RED CELL DISTRIBUTION WIDTH 15.9 % (11.7-14.4)
[2018-08-25] MEDS ORDERED: FAMOTIDINE 20 MG TAB PO SCH (06:00)
[2018-08-25 06:10] LABS: ALANINE AMINOTRANSFERASE 9 IU/L (0-55); ALBUMIN 2.6 g/dL (3.5-5.0); ALKALINE PHOSPHATASE 91 IU/L (40-150); ANION GAP 12.8 mmol/L (8-16); BLOOD UREA NITROGEN 10 mg/dL (7-26); BUN/CREATININE RATIO 13 (6-25); CALCIUM 11.3 mg/dL (8.4-10.2); CARBON DIOXIDE 23 mmol/L (22-29); CHLORIDE 102 mmol/L (98-107); CREATININE, SERUM 0.78 mg/dL (0.57-1.11); EST GLOMERULAR FILTRATION RATE > 60 ML/MIN (60-); GLUCOSE 82 mg/dL (74-118); POTASSIUM 3.8 mmol/L (3.5-5.1); SODIUM 134 mmol/L (136-145)
[2018-08-25 06:15] LABS: B-TYPE NATRIURETIC PEPTIDE2 85.8 pg/mL (0-100)
[2018-08-25] MEDS: LEVOTHYROXINE SODIUM 100 MCG TAB PO SCH (06:19)
--- NOTE | 2018-08-25 06:23 | NUR ---
called Dr. Jez Cruz with the last lactic acid result 32.7, WBC 13.04 both are coming down from previous labs. OLIVIA Cruz did not have any new orders.
[2018-08-25 06:25] LABS: BILIRUBIN,DIRECT 0.6 mg/dL (0.0-0.5); MAGNESIUM 1.6 MG/DL (1.3-2.1)
[2018-08-25 06:41] LABS: CREATINE KINASE MB 0.7 ng/mL (0-5.0)
[2018-08-25 06:48] LABS: FREE T4 (FREE THYROXINE) 1.19 ng/dL (0.9-1.8); THYROID STIMULATING HORMONE 1.452 uIU/mL (0.350-4.940)
--- NOTE | 2018-08-25 06:58 | NUR ---
RECEIVED PATIENT RESTING IN BED. NO ACUTE DISTRESS NOTED. NO S/S OF PAIN OR DISCOMFORT AT THIS TIME. CALL LIGHT WITHIN REACH. BED IN THE LOWEST POSITION. BED ALARM ON.
--- NOTE | 2018-08-25 07:02 | NUR ---
report given to Silvia VELASQUEZ, patient in bed awake, IV intact, report of labs given to day nurse. Lactic acid decreasing, WBC decreasing
--- NOTE | 2018-08-25 08:27 | Consultation ---
DATE OF CONSULTATION: 08/25/2018 This patient is located at [facility] in [place], [place]. This is a patient of Kevin Story MD. HISTORY OF PRESENT ILLNESS: Ms. Robison is an 87-year-old lady, who lives with her son and usually in her alert and oriented state of mind without any history of dementia, was brought into the hospital by her son with chief complaint of altered mental status and confusion for the past three days with progressive worsening. Per my discussion with the staff and evaluating the ER note, the patient apparently has a house call physician who gets to be seen and last time the nurse practitioner saw the patient was saying that getting too much Lasix and therefore it was stopped and thought to be dehydrated. So, the patient is admitted for evaluation and possibly treatment of the cause behind altered mental status. Her blood culture and urine cultures are pending. Had a chest x-ray done, which showed no acute cardiopulmonary abnormalities. Vital signs reviewed and the patient seems to be hypothermic on admission with a temperature of 95.7 with leukocytosis of 14.19 on admission, lactic acid was 32.7 with hemoglobin A1c of 4.9. PAST MEDICAL HISTORY: Includes hypothyroidism, hyperlipidemia, hypertension, gout, electrolyte abnormalities, history of UTI. PAST SURGICAL HISTORY: Had a history of carpal tunnel surgery. ALLERGIES: NO KNOWN ALLERGIES. MEDICATIONS: Medication list has been reviewed. As far as Infectious Disease point of view the patient is on Rocephin. SOCIAL HISTORY: The patient lives with her son, usually alert and oriented state of mind without history of dementia. No history of a tobacco or alcohol consumption. LABORATORY STUDIES: Sodium 134, potassium 3.8, creatinine 0.78. Lactic acid 32.7, AST 30, ALT 9. TSH 1.452. White blood cells 14.1, improved to 13.04; hemoglobin 11.1; platelet 243. Blood culture and urine culture are pending. RADIOLOGY STUDIES: Chest x-ray was done on 08/24/2018 showed no acute cardiopulmonary abnormalities. REVIEW OF SYSTEMS: The patient is confused, unable to obtain review of systems. The patient was interviewed with a electric power line repairer. The patient currently speaks Dutch only, however, has no complaints. PHYSICAL EXAMINATION: GENERAL: The patient is awake and alert, seems to be confused. VITAL SIGNS: Temperature 99.7, which has improved from 95.7 on admission, pulse is 86, respirations 17, blood pressure 121/60, while her blood pressure was 96/52 today. CV: S1, S2. CHEST: Equal expansion. Clear to auscultation on the chest without acute distress. ABDOMEN: Soft, nontender. No suprapubic discomfort or tenderness. Bowel sounds are positive. No distention. No tightness. HEENT: Moist. No pallor. No JVD. The patient on O2 nasal cannula. EXTREMITIES: She has 1 to 2+ edema of the bilateral feet, weak. Moves all extremities. No acute distress. ASSESSMENT AND PLAN: This is an 87-year-old female admitted with altered mental status with progressive worsening for past three days, usually alert and oriented state of mind. Lives with her son. Past medical history as mentioned above. Chest x-ray was negative. Lactic acid was elevated. The patient was hypotensive on admission and there was some concern about dehydration. Microbiology studies are pending. The patient is currently on Rocephin. Concern sepsis on admission. We will follow with the culture results. White counts have improved. We will recheck lactic acid for tomorrow. Clinically, no acute distress. Further management of this patient is based on daily finding on laboratory and physical examination. This case was discussed with Dr. Tucker in detail. Please refer to the chart and the note from today for further management of this patient. Thank you for this kind consult. Dictated by Stephen Ram PA-C (Al) patient is seen and examined by me agree with flower hooper with medical team Beata Tucker MD /MODL /[id number] RUBY
[2018-08-25] MEDS: ASPIRIN 81 MG CHEW TAB PO SCH (08:41)
[2018-08-25] MEDS: METOPROLOL TARTRATE 25 MG TAB PO SCH (08:41)
[2018-08-25] MEDS: ALLOPURINOL 100 MG TAB PO SCH (08:42)
[2018-08-25 12:09] LABS: CREATINE KINASE MB 0.6 ng/mL (0-5.0)
--- NOTE | 2018-08-25 16:16 | NUR ---
Nutrition Screen Note RD Recommendation for Physician: -Continue current diet as ordered Plan of Care: RD following, monitoring for tolerance and adequacy Nutrition reason for involvement: Nutrition risk trigger MST Primary Diagnose(s): Confusion, dehydration, hypercalcemia PMH: hypothyroidism, hyperlipidemia, hypertension, gout, electrolyte abnormalities, UTI Ht: 63in Wt: 107.25lb BMI: 19.0kg/m2 IBW: 115lb RD Assessment: (08/25) Chart reviewed. Labs and meds reviewed. 87yo F, who was admitted from home for AMS and confusion x 3 days. Unable to obtain hx from pt due to AMS; no family on bedside. Per RN Silvia, son stated pt was eating better in the hospital than at home. No complains of nausea or vomiting. Negative CXR. CT abd/pel was pending. PCT recorded 100% of breakfast intake today. Will continue to monitor and follow. Current Diet: regular diet Malnutrition Evaluation (08/25/2018) Unable to evaluate at this time. Diet Education Needs Assessment: Diet education not indicated. Nutrition Care Level: low Signed: Naty Barrios, MS, RD, LD
[2018-08-25] MEDS: MEGESTROL ACETATE 40 MG TAB PO SCH (16:26)
--- NOTE | 2018-08-25 16:44 | Diagnostic Imaging Report ---
CT Abdomen with Intravenous Contrast INDICATION: Poor appetite, nausea ^POOR APPETITE, NAUSEA ^[id number] ^1616 TECHNIQUE: Thin collimation axial images obtained from the diaphragm to the level of the pubic symphysis following the uneventful administration of 100 cc of low osmolar, nonionic intravenous contrast. Dose reduction techniques used: Automated exposure control, adjustment of the mAs and/or kVp according to patient size, standardized low-dose protocol, and/or iterative reconstruction technique. RADIATION DOSE: Total DLP: 122.75 mGy*cm Estimated effective dose: (DLP x 0.015 x size factor) mSv CTDIvol has been reviewed. It is below the limits set by the Radiation Protocol Committee (RPC). COMPARISON: None. ABDOMEN FINDINGS: Lung Bases: Small posterior layering pleural effusions. The lungs are mildly hyperinflated with bibasilar atelectasis. A nodule in the inferior right upper lobe measures 3-4 mm and may or may not be calcified. Visualized portion of the mediastinum is normal Liver: Mildly decreased attenuation suggestive of steatosis. No evidence for mass. Gallbladder: Present and contains multiple calcified gallstones measuring up to 14 mm. No gallbladder wall thickening. No biliary ductal dilatation. Pancreas: Displaced anteriorly and is poorly visualized secondary to diffuse lobulated soft tissue in the small bowel mesentery. Spleen: Normal in size. No evidence of mass.. Adrenal Glands: Poorly visualized. Kidneys: Right: A normal right kidney is not visible. The right renal artery is visible and can be tracked into a large lobulated and heterogeneously enhancing solid soft tissue mass that extends across the midline into the left hemiabdomen. Left: Normal enhancement. A low attenuating lesion the upper pole measures 7 mm. No hydronephrosis. Lymph Nodes: Lobulated, heterogeneously enhancing soft tissue mass involving the retroperitoneum and small bowel mesentery measures at least 13.7 cm AP, 23 cm transverse, and 15.4 cm craniocaudal. As mentioned above, it displaces the pancreas anteriorly as well as the duodenum. It also engulfs the right kidney. It also surrounds the infrahepatic IVC and insinuates between the aorta and IVC. Portions of this mass terminates medial to the left kidney. Bulky left periaortic lymph node inferior to the mass mentioned above measures 2.3 x 3.2 cm. Aorta: The aorta is normal in diameter with scattered calcifications. The celiac and SMA are mildly compressed by the soft tissue mass but remain patent. The renal arteries are surrounded by the soft tissue mass. IVC: Thrombus in the infrarenal IVC extends into the right common iliac vein. Portal vein: Patent and normal in diameter. There is a thrombus in the proximal SMV. Splenic vein: Patent The gonadal veins are engorged and tortuous likely secondary to collateralization from IVC thrombus PELVIS FINDINGS: Bowel: Stomach: Displaced anteriorly but is not dilated. Small Bowel: The duodenum and proximal jejunum are displaced anteriorly and or collapsed. The visualized small bowel loops are not dilated. Large Bowel: Visualized portions of the large bowel are not dilated. Diverticulosis of the descending colon without associated inflammation. Peritoneum/retroperitoneum: Small amount of abdominal ascites. No loculated the fluid collection. No free air. Bones: There is a compression fracture of the L4 vertebral body of approximately 50-60%. There is mild spinal canal stenosis at this level. No pars defects. The bones are diffusely demineralized. Soft tissues: Mild subcutaneous edema. IMPRESSION: 1. Large infiltrating retroperitoneal mass extending into the small bowel mesentery and replacing the right kidney and involving other structures as described above. 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 2. 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 3. Small amount of abdominal ascites. Small pleural effusions. 4. No evidence of bowel obstruction. Cholelithiasis. 5. Age indeterminate compression fracture of L4. Signed by: Dr. Maureen Harrington MD on 08/25/2018 4:41 PM
[2018-08-25] MEDS: LORAZEPAM INJ 2 MG/ML VIAL IV PRN (17:44)
[2018-08-25] MEDS ORDERED: SODIUM CHLORIDE 0.9% 50ML 50 ML ONE (18:31)
[2018-08-25] MEDS ORDERED: IOPAMIDOL 370 MG/ML 200 ML INFUS..BTL INJ ONE (18:32)
--- NOTE | 2018-08-25 19:29 | NUR ---
REPORT GIVEN TO ONCOMING NURSE, PATIENT IS RESTING IN BED. NO ACUTE DISTRESS NOTED, RESPIRATIONS EVEN AND UNLABORED, NO S/S OF PAIN NOTED. CALL LIGHT WITHIN REACH. BED IN THE LOWEST POSITION. BED ALARM ON.
--- NOTE | 2018-08-25 20:29 | Consultation ---
DATE OF CONSULTATION: Pulmonary Critical Care Consultation HISTORY OF PRESENT ILLNESS: The patient is an 87-year-old woman with a history of organic brain syndrome, hypertension, and prior urinary tract infections. She required hospitalization at [facility] in June 2018. She now returns because of increasing confusion and poor appetite for 3 days. She did not have any chest pain or cough. She did not have abdominal pain. There was no nausea or vomiting. Upon admission, she was noted to have leukocytosis of 14 and elevated lactic acid. She was subsequently started on antibiotics and cultures were obtained. PAST SURGICAL HISTORY: 1. Carpal tunnel release. 2. Operative repair of the arm fracture. PAST MEDICAL HISTORY: 1. Hypothyroidism. 2. Hypertension. 3. Prior UTIs. 4. Organic brain syndrome. ALLERGIES: THERE ARE NO KNOWN DRUG ALLERGIES. SOCIAL HISTORY: The patient is not an active smoker. She is not an active drinker. REVIEW OF SYSTEMS: There is no history reported of fevers. She does not have headache. She has no neck pain. There is no reported chest pain. She has no difficulty breathing. There is no cough. She has no abdominal pain. There is no nausea or vomiting. She has no leg edema. PHYSICAL EXAMINATION: VITAL SIGNS: The patient is afebrile now. The vital signs are stable. There was a T-max of 99.7. HEENT: Shows no facial swelling or erythema. The nasal mucosa is normal. The oropharynx is normal. LYMPHATIC: Shows no submandibular, cervical, or supraclavicular adenopathy. CARDIAC: Reveals regular rate and rhythm with normal S1, S2. There are no murmurs or rubs. LUNGS: Auscultation of lungs shows clear breath sounds bilaterally. There is no wheezing. ABDOMEN: Soft, nontender. There is no rebound or guarding. EXTREMITIES: Show no leg edema or calf tenderness. There is no cyanosis or clubbing. SKIN: Shows no rashes. NEUROLOGIC: Shows no focal abnormalities, but the patient does have over confusion. LABORATORY DATA: White blood cell count is 13, hemoglobin is 9.6, and the platelet count is 208. The BUN to creatinine ratio is normal. The other electrolytes are within normal limits. RADIOGRAPHIC DATA: Chest x-ray shows no active disease. IMPRESSION: 1. Metabolic encephalopathy. 2. Leukocytosis and elevated lactic acid. 3. Anemia, unspecified. 4. Hypothyroidism. 5. Dehydration. 6. Moderate protein-calorie malnutrition. PLAN: 1. Continue antibiotics and await culture results. 2. Nutritional evaluation. 3. Review of medications for any medicines which may be worsening her confusion. 4. IV hydration. MD CATALINA Le/SHARON /[id number]
[2018-08-25] MEDS: MIRTAZAPINE 15 MG TAB PO SCH (21:00)
[2018-08-25] MEDS: SIMVASTATIN 20 MG TAB PO SCH (21:00)
[2018-08-26] VITALS (8 sets, daily range): BP systolic 96–120; BP diastolic 55–57
[2018-08-26] MEDS: CEFTRIAXONE SOD 1 GM/NS 50 ML 50 ML IV SCH (03:39)
[2018-08-26 03:47] LABS: BASOPHILS # (AUTO) 0.1 (0.0-0.1); BASOPHILS % 1.1 % (0.0-1.0); EOSINOPHILS # (AUTO) 0.2 (0.0-0.4); EOSINOPHILS % 1.3 % (0.0-6.0); HEMATOCRIT 30.3 % (34.2-44.1); HEMOGLOBIN 9.4 g/dL (12.0-16.0); LYMPHOCYTES # (AUTO) 0.8 (1.0-3.2); LYMPHOCYTES % 5.9 % (18.0-39.1); MEAN CORPUSCULAR HEMOGLOBIN 28.7 pg (28-32); MONOCYTES # (AUTO) 1.2 (0.2-0.8); MONOCYTES % 8.8 % (4.4-11.3); NEUTROPHILS # (AUTO) 10.8 (2.1-6.9); NEUTROPHILS % 80.9 % (38.7-80.0); PLATELET COUNT 164 x10e3/uL (140-360); RED BLOOD COUNT 3.27 x10e6/uL (3.6-5.1); RED CELL DISTRIBUTION WIDTH 16.2 % (11.7-14.4)
[2018-08-26 03:50] LABS: MEAN CORPUSCULAR VOLUME 92.7 fL (81-99)
[2018-08-26 04:10] LABS: ANION GAP 16.2 mmol/L (8-16); BLOOD UREA NITROGEN 7 mg/dL (7-26); BUN/CREATININE RATIO 10 (6-25); CALCIUM 10.8 mg/dL (8.4-10.2); CARBON DIOXIDE 16 mmol/L (22-29); CHLORIDE 109 mmol/L (98-107); CREATININE, SERUM 0.69 mg/dL (0.57-1.11); EST GLOMERULAR FILTRATION RATE > 60 ML/MIN (60-); GLUCOSE 84 mg/dL (74-118); LIPASE 27 U/L (8-78); MAGNESIUM 1.4 MG/DL (1.3-2.1); POTASSIUM 4.2 mmol/L (3.5-5.1); SODIUM 137 mmol/L (136-145)
[2018-08-26] MEDS: PANTOPRAZOLE SOD 40 MG TABEC PO SCH ×2 (06:00→08:17)
[2018-08-26] MEDS: LEVOTHYROXINE SODIUM 100 MCG TAB PO SCH (06:00)
[2018-08-26] MEDS: D5NS/KCL 20MEQ 1,000 ML IV SCH (06:13)
--- NOTE | 2018-08-26 06:50 | NUR ---
RECEIVED PATIENT RESTING IN BED. RESPIRATIONS EVEN AND UNLABORED. NO ACUTE DISTRESS NOTED. CALL LIGHT WITHIN REACH. BED IN THE LOWEST POSITION. BED ALARM ON.
[2018-08-26] MEDS: MEGESTROL ACETATE 40 MG TAB PO SCH ×2 (08:17→17:09)
[2018-08-26] MEDS: ALLOPURINOL 100 MG TAB PO SCH (08:17)
[2018-08-26] MEDS: ASPIRIN 81 MG CHEW TAB PO SCH (08:17)
[2018-08-26] MEDS: METOPROLOL TARTRATE 25 MG TAB PO SCH (08:17)
--- NOTE | 2018-08-26 09:56 | NUR ---
NOTIFIED AL PA OF LACTIC ACID OF 72.7, ORDERS RECEIVED FOR IV ROCEPHIN TO BE STOPPED AND ADDED MERREM IV 500MG Q6H AND VANCOMYCIN 1G Q12H. ALSO OBTAIN PROCALCITONIN LEVEL.
--- NOTE | 2018-08-26 10:05 | NUR ---
CONSULT FOR DR. ERWIN CALLED IN BY US.
[2018-08-26] MEDS: VANCOMYCIN 1GM/NS 250 ML 250 ML IV SCH ×2 (10:14→22:15)
[2018-08-26] MEDS: ENOXAPARIN 30 MG/0.3 ML SYR SC SCH (10:14)
[2018-08-26] MEDS ORDERED: FUROSEMIDE INJ 10 MG/ML 4 ML VIAL IV ONE (10:15)
[2018-08-26] MEDS ORDERED: MEROPENEM 500MG 500 MG in SODIUM CHLORIDE 0.9% 50ML 50 ML IV SCH (12:00)
[2018-08-26] MEDS: MEROPENEM 500MG/ NS 50ML 50 ML IV SCH ×3 (12:04→23:10)
--- NOTE | 2018-08-26 13:39 | NUR ---
PATIENT PULLED IV LINE. NEW LINE TO RIGH UPPER ARM 20G STARTED.
[2018-08-26] MEDS: LORAZEPAM INJ 2 MG/ML VIAL IV PRN (14:23)
[2018-08-26] MEDS: SODIUM CHLORIDE 0.9% 1000ML 1,000 ML IV SCH (14:37)
--- NOTE | 2018-08-26 18:09 | Consultation ---
DATE OF CONSULTATION: 08/26/2018 Endocrine Consultation The patient Dr. Story. HISTORY OF PRESENT ILLNESS: Thank you very much for referring this patient. This is an 87-year-old white female, who is referred to me for evaluation of hypercalcemia and hypothyroidism. The patient came to the hospital with history of confusion. She tells me that she was in the hospital before this. She has long-standing history of dementia, hypothyroidism, hyperlipidemia, and recurrent urinary tract infections. During the hospital stay, her white count was elevated and the lactic acid levels are high. The patient has been started on antibiotic. On further evaluation, she was also found to have a retroperitoneal mass, possibly a lymphoma in the abdomen. At the time of admission, her calcium was 12.7, and it has gone down to 10.7. PHYSICAL EXAMINATION: GENERAL: Today, the patient is awake, but confused. VITAL SIGNS: Her heart rate is 117, blood pressure is 130/80 and smoky. HEENT: Essentially unremarkable. Thyroid is palpable. Clinically, she is near euthyroid. CHEST: Bilateral vesicular breathing. No rales heard. CARDIOVASCULAR: First and second heart sounds. There are no third or fourth heart sounds HEARD. CLINICAL IMPRESSION: 1. Hypercalcemia, could be due to malignancy related. 2. Sepsis urinary tract infection. 3. High lactic acidosis. 4. Altered mental status. 5. Anemia. PLAN: The plan is to try and PTH levels, and also we will check a thyroid profile and continue the same thyroid medications for now. Thank you again for referring this patient. I will be following this patient with you. MD DREA Greenwood/SHARON /[id number] RUBY
--- NOTE | 2018-08-26 18:33 | NUR ---
SPOKE TO DR. ERWIN IN REGARDS TO NEW CONSULT, PER MD HE WILL SEE PATIENT TOMORROW MORNING, NO NEW ORDERS RECEIVED.
--- NOTE | 2018-08-26 19:23 | NUR ---
REPORT GIVEN TO ONCOMING NURSE, PATIENT IS IN STABLE CONDITION, RESPIRATIONS EVEN AND UNLABORED. NO S/S OF PAIN NOTED. CALL LIGHT WITHIN REACH. BED IN THE LOWEST POSITION.
--- NOTE | 2018-08-26 19:34 | NUR ---
PT IS RESTING IN BED WITH 1:1 SITTER AT BEDSIDE. RESPIRATION IS EVEN AND UNLABORED, NO DISTRESS NOTED. BED IN THE LOWEST POSITION, LOCKED, BED ALARM ON, AND CALL LIGHT WITHIN REACH. WILL CONTINUE TO MONITOR.
[2018-08-26] MEDS: SIMVASTATIN 20 MG TAB PO SCH (21:00)
[2018-08-26] MEDS: MIRTAZAPINE 15 MG TAB PO SCH (21:00)
[2018-08-27] VITALS (7 sets, daily range): BP systolic 108–122; BP diastolic 57–66
[2018-08-27 03:50] LABS: BASOPHILS # (AUTO) 0.2 (0.0-0.1); BASOPHILS % 1.3 % (0.0-1.0); EOSINOPHILS # (AUTO) 0.2 (0.0-0.4); EOSINOPHILS % 1.6 % (0.0-6.0); HEMATOCRIT 29.7 % (34.2-44.1); HEMOGLOBIN 9.4 g/dL (12.0-16.0); LYMPHOCYTES % 8.3 % (18.0-39.1); MEAN CORPUSCULAR HEMOGLOBIN 28.8 pg (28-32); MEAN CORPUSCULAR HGB CONC 31.6 g/dL (31-35); MEAN CORPUSCULAR VOLUME 91.1 fL (81-99); MONOCYTES # (AUTO) 1.1 (0.2-0.8); MONOCYTES % 9.1 % (4.4-11.3); NEUTROPHILS # (AUTO) 9.4 (2.1-6.9); NEUTROPHILS % 77.5 % (38.7-80.0); PLATELET COUNT 176 x10e3/uL (140-360); RED BLOOD COUNT 3.26 x10e6/uL (3.6-5.1); RED CELL DISTRIBUTION WIDTH 16.2 % (11.7-14.4)
[2018-08-27 04:07] LABS: ANION GAP 14.7 mmol/L (8-16); BLOOD UREA NITROGEN 10 mg/dL (7-26); BUN/CREATININE RATIO 16 (6-25); CALCIUM 10.5 mg/dL (8.4-10.2); CARBON DIOXIDE 20 mmol/L (22-29); CHLORIDE 106 mmol/L (98-107); CREATININE, SERUM 0.64 mg/dL (0.57-1.11); EST GLOMERULAR FILTRATION RATE > 60 ML/MIN (60-); POTASSIUM 3.7 mmol/L (3.5-5.1); SODIUM 137 mmol/L (136-145)
[2018-08-27 04:10] LABS: GLUCOSE 56 mg/dL (74-118); MAGNESIUM 1.1 MG/DL (1.3-2.1)
[2018-08-27] MEDS: LEVOTHYROXINE SODIUM 100 MCG TAB PO SCH (05:04)
[2018-08-27] MEDS: SODIUM CHLORIDE 0.9% 1000ML 1,000 ML IV SCH ×2 (05:08→18:44)
[2018-08-27] MEDS: MEROPENEM 500MG/ NS 50ML 50 ML IV SCH ×3 (05:08→18:44)
--- NOTE | 2018-08-27 05:16 | NUR ---
LAB CALLED THAT PT BLOOD GLUCOSE WAS 56. GAVE PT APPLE JUICE AND PUDDING AND RECHECK BLOOD SUGAR. NOW PT BLOOD SUGAR IS 75. WILL CONTINUE TO MONITOR.
--- NOTE | 2018-08-27 05:22 | NUR ---
SPOKE TO CLAIMS COORDINATOR LEOPOLDO ROMO IN REGARD TO PT BLOOD GLUCOSE OF 56 AND MAGNESIUM OF 1.1. PER CLARISSA DEXTROSE 50ML IV PRN, BLOOD GLUCOSE ASSESSMENT AC/HS, MAGNESIUM SULFATE 1G IV ONE TIME DOSE. WILL CONTINUE TO MONITOR.
[2018-08-27] MEDS ORDERED: MAGNESIUM SULFATE 2GM/50ML 50 ML IV ONE ×2 (05:30→05:45)
[2018-08-27] MEDS ORDERED: DEXTROSE 50% SYRINGE 50 ML IV PRN (05:45)
[2018-08-27] MEDS ORDERED: MAGNESIUM SULF 1GRAM/DEXTROSE 100 ML IV ONE (06:15)
--- NOTE | 2018-08-27 06:21 | NUR ---
PT IS RESTING IN BED WITH 1:1 SITTER AT BEDSIDE. NO DISTRESS NOTED. BED IN THE LOWEST POSITION, LOCKED, BED ALARM ON, AND CALL LIGHT WITHIN REACH. WILL CONTINUE TO MONITOR.
[2018-08-27] MEDS: PANTOPRAZOLE SOD 40 MG TABEC PO SCH (07:30)
--- NOTE | 2018-08-27 08:30 | NUR ---
Patient alertn and responsive, no resp distress, in bed and no agitation noted at this time, one to one in place, will monitor.
[2018-08-27] MEDS: ASPIRIN 81 MG CHEW TAB PO SCH (09:00)
[2018-08-27] MEDS: ALLOPURINOL 100 MG TAB PO SCH (09:00)
[2018-08-27] MEDS: MEGESTROL ACETATE 40 MG TAB PO SCH ×2 (09:00→17:00)
[2018-08-27] MEDS: METOPROLOL TARTRATE 25 MG TAB PO SCH (09:00)
[2018-08-27] MEDS: ENOXAPARIN 30 MG/0.3 ML SYR SC SCH (09:00)
--- NOTE | 2018-08-27 09:58 | NUR ---
Patient spitting out by mouth intakes, Head of bed elevated, will monitor and aspiration precautions in place
[2018-08-27] MEDS: VANCOMYCIN 1GM/NS 250 ML 250 ML IV SCH ×2 (10:01→22:00)
[2018-08-27 10:36] LABS: FERRITIN 922.58 ng/mL (4.63-204.00)
--- NOTE | 2018-08-27 10:54 | NUR ---
Rounds by Dr. lAeman, hematology and called son to discuss plan of care
--- NOTE | 2018-08-27 11:56 | NUR ---
Patient alert and responsive, family friend in room at this time and sitter taken off. IV abx running as ordered. OOB and ambulating hallways with PT, will monitor.
--- NOTE | 2018-08-27 12:22 | NUR ---
WOUND CARE NURSE INITIAL CONSULTATION. 87 YEAR OLD FEMALE ADMITTED TO [facility] WITH DX OF CONFUSION, DEHYDRATION, HYPERCALCEMIA, AND HYPOGLYCEMIA. HEAD TO TOE SKIN ASSESSMENT PERFORMED TODAY. BLANCHABLE REDNESS NOTED TO BILATERAL BUTTOCKS, FOAM DRESSING IN PLACE. NO OPEN AREAS NOTED AT THIS TIME. THERE ARE NO S/S OF INFECTION. NO OTHER AREAS OF CONCERN NOTED AT THIS TIME. LABS: WBC: 12.18 GLUCOSE: 74 HGBA1C: 4.9 BLOOD CX RESULTS ARE PENDING. RECOMMENDATIONS: CONTINUE WITH ALLEVYN FOAM TO BILATERAL BUTTOCKS. MONITOR BILATERAL BUTTOCKS AND CHANGE DRESSING DAILY. CONTINUE WITH ALTERNATING LOW AIR LOSS MATTRESS PROVIDE BILATERAL HEEL PROTECTORS REPOSITION PT EVERY 2 [address] AND PRN. THAN[address] PARMAR FOR THIS CONSULTATION. Addendum: 08/27/18 at 1226 by Jennie Noyola RN Amended: Links added.
--- NOTE | 2018-08-27 13:00 | NUR ---
SPOKE WITH SON AND GAVE SEVERAL FACILITIES TO LOOK AT, GAVE [facility] BECAUSE IT HAS A DEMENTIA UNIT AND FOCUSED CARE BY THEIR HOME, HE WILL LOOK AT BUILDINGS AND LET ME KNOW THE CHOICE FOR FACILITIES. HE WANTS TO SPEAK TO THE DOCTOR ABOUT THE LYMPHOMA IN ABD.
--- NOTE | 2018-08-27 13:09 | NUR ---
NOTIFIED THAT SON WANTS TO SPEAK WITH HIM.
--- NOTE | 2018-08-27 14:06 | Consultation ---
DATE OF CONSULTATION: 08/27/2018 Thank you, Dr. Story, for this consultation. HISTORY OF PRESENT ILLNESS: An 87-year-old female with a history of hypothyroidism, hypertension, organic brain syndrome, history of carpal tunnel disease, currently in hospital with worsening confusion. At admission, the patient's workup was consistent with metabolic encephalopathy with leukocytosis, dehydration, and some malnutrition. The patient has dementia, history obtained from medical chart. The patient had x-ray chest, which did not show any acute disease. Hospital course complicated with worsening anemia, hemoglobin dropped to 9.4. 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 The patient is currently on hydration, antibiotic, Lovenox for DVT prophylaxis, aspirin. No evidence of any active GI bleed noted. PAST MEDICAL HISTORY: Hypothyroidism, hyperlipidemia, hypertension, gout, UTI, organic brain syndrome, dementia. PAST SURGICAL HISTORY: Carpal tunnel surgery. ALLERGIES: NKDA. MEDICATION LIST: Reviewed. SOCIAL HISTORY: The patient lives with her son, #[phone]. No tobacco or alcohol consumption. FAMILY HISTORY: Reviewed and noncontributory. REVIEW OF SYSTEMS: Limited because of mental condition. PHYSICAL EXAMINATION: GENERAL: The patient alert, awake, not oriented. HEENT: Normocephalic, atraumatic. Sclerae pale. Conjunctiva clear. NECK: Supple. CHEST: Decreased breath sounds at bases. ABDOMEN: Mildly tender. EXTREMITIES: 1+ edema. DATA MINING ANALYST: Positive confusion. SKIN: Intact. LABS AND IMAGING: Reviewed. ASSESSMENT AND PLAN: The patient with history of multiple medical conditions, admitted through emergency with dehydration and possible sepsis. The patient has worsening anemia. 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 1. Anemia. The patient has normocytic anemia. Multifactorial etiology. Recommend complete anemia workup include flow cytometry for lymphoma panel. Further recommendation as per workup. 2. Rule out infiltrative retroperitoneal mass concerning for lymphoma. Recommendation is LDH, flow cytometry of peripheral blood and I will communicate with her about the goals of care and decide further management as per goals of care. 3. 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 The patient currently on DVT prophylaxis dose of Lovenox. Goals of care not clear. We will communicate with family, decide goals of care, discuss risk and benefits. Further recommendation as per workup. We will continue remaining care. We will follow the patient closely. MD JUANIS Joe/SHARON /[id number]
[2018-08-27] MEDS ORDERED: FUROSEMIDE INJ 10 MG/ML 2 ML VIAL IV ONE (14:30)
--- NOTE | 2018-08-27 14:30 | NUR ---
Rounds by Dr. Lieberman and orders to schedule patient on Lasix 20 mg daily and to remain on IV fluids. Also to orders PTH-Peptide. Called lab and tech verified and stated PTH-protein is ok to order given no PTH-peptide on the system.
--- NOTE | 2018-08-27 17:38 | NUR ---
Rounds by Dr. Barrios and orders to change diet to AHA and maintain mechanical soft. Patient feels better after vasovagal episode, BP 131/81, P 56, no resp distress, tolerated diner , HOB elevated, will monitor.
--- NOTE | 2018-08-27 19:20 | NUR ---
Bedside rounds completed with morning nurse. Pt alert to name. Lying in bed HOB 60 degrees. No s/s pain at this time. 20g IV right upper arm, NS @80. No acute distress noted. 1:1 sitter at bedside. Call yadav within reach. Will continue to monitor.
[2018-08-27] MEDS: MAGNESIUM SULFATE 2GM/50ML 50 ML IV SCH ×2 (20:15→22:30)
[2018-08-27] MEDS: SIMVASTATIN 20 MG TAB PO SCH (20:38)
[2018-08-27] MEDS: MIRTAZAPINE 15 MG TAB PO SCH (20:38)
[2018-08-28] VITALS: BP 114/57
--- NOTE | 2018-08-28 | NUR ---
Vancomycin HELD per RAFFAELE Munroe. HOLD until furthers orders from Infectious Disease. Vancomycin trough 22.7.
[2018-08-28] MEDS: MEROPENEM 500MG/ NS 50ML 50 ML IV SCH ×4 (00:15→17:20)
[2018-08-28 04:00] VITALS: BP 114/57
[2018-08-28 06:28] LABS: BASOPHILS # (AUTO) 0.1 (0.0-0.1); BASOPHILS % 1.2 % (0.0-1.0); EOSINOPHILS # (AUTO) 0.2 (0.0-0.4); EOSINOPHILS % 1.9 % (0.0-6.0); LYMPHOCYTES % 9.7 % (18.0-39.1); MEAN CORPUSCULAR HEMOGLOBIN 28.1 pg (28-32); MEAN CORPUSCULAR VOLUME 90.6 fL (81-99); MONOCYTES % 9.5 % (4.4-11.3); NEUTROPHILS # (AUTO) 7.8 (2.1-6.9); NEUTROPHILS % 75.7 % (38.7-80.0); PLATELET COUNT 189 x10e3/uL (140-360); RED CELL DISTRIBUTION WIDTH 16.1 % (11.7-14.4)
[2018-08-28] MEDS: LEVOTHYROXINE SODIUM 100 MCG TAB PO SCH (06:30)
--- NOTE | 2018-08-28 06:52 | NUR ---
Pgd Dr. Tucker regarding Vancomycin trough. Awaiting call back for further instructions. Report given to morning nurse.
[2018-08-28 06:53] LABS: ANION GAP 11.2 mmol/L (8-16); BLOOD UREA NITROGEN 9 mg/dL (7-26); BUN/CREATININE RATIO 15 (6-25); CARBON DIOXIDE 24 mmol/L (22-29); CHLORIDE 107 mmol/L (98-107); CREATININE, SERUM 0.61 mg/dL (0.57-1.11); EST GLOMERULAR FILTRATION RATE > 60 ML/MIN (60-); MAGNESIUM 2.2 MG/DL (1.3-2.1); PHOSPHORUS 1.6 MG/DL (2.3-4.7); POTASSIUM 3.2 mmol/L (3.5-5.1); SODIUM 139 mmol/L (136-145)
[2018-08-28 06:57] LABS: GLUCOSE 43 mg/dL (74-118)
[2018-08-28 08:00] VITALS: BP 113/54
[2018-08-28 08:16] VITALS: BP 113/54
[2018-08-28] MEDS: PANTOPRAZOLE SOD 40 MG TABEC PO SCH (08:30)
[2018-08-28] MEDS: ENOXAPARIN 30 MG/0.3 ML SYR SC SCH (08:35)
[2018-08-28] MEDS: METOPROLOL TARTRATE 25 MG TAB PO SCH (08:35)
[2018-08-28] MEDS: FUROSEMIDE INJ 10 MG/ML 2 ML VIAL IV SCH (08:35)
[2018-08-28] MEDS: ASPIRIN 81 MG CHEW TAB PO SCH (08:35)
[2018-08-28] MEDS: MEGESTROL ACETATE 40 MG TAB PO SCH ×2 (08:35→16:50)
[2018-08-28] MEDS: ALLOPURINOL 100 MG TAB PO SCH (08:35)
[2018-08-28 12:00] VITALS: BP 110/58
[2018-08-28] MEDS: SODIUM CHLORIDE 0.9% 1000ML 1,000 ML IV SCH ×2 (12:33→16:50)
--- NOTE | 2018-08-28 15:31 | NUR ---
SON CALLED AND CHOSE [facility], WILL FAX CLINICALS
--- NOTE | 2018-08-28 15:58 | NUR ---
[facility] TO [phone]
[2018-08-28 20:00] VITALS: BP 111/58
--- NOTE | 2018-08-28 21:05 | NUR ---
NO RESPIRATORY DISTRESS OBSERVED, PATIENT DENIES PAIN. CONFUSION NOTED WHILE TALKING WITH THE PATIENT, SITTER AT THE BEDSIDE. REPOSITION FOR COMFORT, WILL CONTINUE TO MONITOR.
[2018-08-28] MEDS: SIMVASTATIN 20 MG TAB PO SCH (21:13)
[2018-08-28] MEDS: MIRTAZAPINE 15 MG TAB PO SCH (21:13)
[2018-08-28] MEDS ORDERED: POTASSIUM PHOSPHATE 20 MM in SODIUM CHLORIDE 0.9% 250ML 250 ML IV ONE (21:30)
--- NOTE | 2018-08-28 23:40 | NUR ---
PATIENT IS CONFUSED, ATTEMPTED TO GET OUT OF BED AND SHE REMOVED HER IV. SHE'S KEPT CLEAN AND DRY BY THE SITTER, REPOSITION FOR COMFORT. IV #20 GAUGE INSERTED TO THE RIGHT WRIST, PROCEDURE TOLERATED WELL, IV FLUID INFUSING ORDERED.
[2018-08-29] VITALS (8 sets, daily range): BP systolic 91–141; BP diastolic 52–67
--- NOTE | 2018-08-29 01:31 | NUR ---
PATIENT CONSTANTLY ATTEMPTING TO GET OUT OF THE BED. SHE'S ASSISTED OUT OF THE BED TO THE WHEELCHAIR AND OUT TO THE NURSES STATION WITH SITTER AT HER SIDE. RESTROOM OFFER BUT SHE STATED NOT YET.
[2018-08-29] MEDS: MEROPENEM 500MG/ NS 50ML 50 ML IV SCH ×4 (02:45→22:35)
--- NOTE | 2018-08-29 04:15 | NUR ---
PATIENT ASSISTED TO THE RESTROOM TO VOID, NO RESPIRATORY DISTRESS OBSERVED AND SHE DENIES PAIN. SITTER REMAINS WITH THE PATIENT ORDERED.
[2018-08-29] MEDS: PANTOPRAZOLE SOD 40 MG TABEC PO SCH (06:45)
[2018-08-29] MEDS: LEVOTHYROXINE SODIUM 100 MCG TAB PO SCH (06:45)
--- NOTE | 2018-08-29 07:30 | NUR ---
Pt resting comfortably in bed, AAOx2 in no acute distress noted. PIV infusing well to right arm. Resp even and non labored, patient analysis or research safety inspector in room instructed to call for assistance, bedside locked and call light is within reach. Report received from RON Pena.
[2018-08-29] MEDS: SODIUM CHLORIDE 0.9% 1000ML 1,000 ML IV SCH ×2 (09:08→16:11)
[2018-08-29] MEDS: ENOXAPARIN 30 MG/0.3 ML SYR SC SCH (09:14)
[2018-08-29] MEDS: ASPIRIN 81 MG CHEW TAB PO SCH (09:15)
[2018-08-29] MEDS: METOPROLOL TARTRATE 25 MG TAB PO SCH (09:15)
[2018-08-29] MEDS: FUROSEMIDE INJ 10 MG/ML 2 ML VIAL IV SCH (09:15)
[2018-08-29] MEDS: ALLOPURINOL 100 MG TAB PO SCH (09:16)
[2018-08-29] MEDS: MEGESTROL ACETATE 40 MG TAB PO SCH ×2 (09:16→16:11)
--- NOTE | 2018-08-29 11:01 | Progress Note ---
DATE: SUBJECTIVE: The patient is seen and examined today. The patient appears comfortable. The patient currently following ID. The patient also following social media senior associate and possibly will go to [facility] continuing care. Clinically, condition is stable. Current hemoglobin is 9. OBJECTIVE: GENERAL: The patient is alert and awake. HEENT: Normocephalic and atraumatic. NECK: Supple. CHEST: Decreased breath sounds in bases. ABDOMEN: Mildly tender. EXTREMITIES: 1+ edema. OPERATING ROOM AIDE: ASSESSMENT AND PLAN: The patient with history of multiple medical conditions, admitted through emergency with dehydration and sepsis. The patient is currently following ID specialist. The patient also had anemia. Current hemoglobin is 9. The patient also has infiltrative retroperitoneal mass concerning for lymphoma. Current goals of cares are palliative. RECOMMENDATION: To continue comfort care. We will monitor patient closely. MD JUANIS Joe/SHARON /[id number]
--- NOTE | 2018-08-29 16:40 | NUR ---
PT ARIADNE FAXED TO [facility] [id number], RTF COMPLETED AND PUT ON PACKET AT NURSES STATION, PT FAMILY GOING TO FACILITY TO COMPLETE PAPERWORK AT 10 AM THEN WILL GIVE ROOM NUMBER TO COMPLETE TRANSFER
[2018-08-29] MEDS ORDERED: ONDANSETRON HCL 4 MG ORAL DISINTEGRATING TAB PO PRN (16:45)
--- NOTE | 2018-08-29 16:45 | NUR ---
Nutrition Follow-up Note RD Recommendation for Physician: - Continue current diet as ordered - Rec switching Ensure pudding to Ensure Enlive as pt didnt eat any of the pudding Plan of Care: RD following, monitoring for tolerance and adequacy Nutrition reason for involvement: Follow up Primary Diagnose(s): Confusion, dehydration, hypercalcemia PMH: hypothyroidism, hyperlipidemia, hypertension, gout, electrolyte abnormalities, UTI Ht: 63in Wt: 107.25lb; 132.25lb BMI: 19.0kg/m2 IBW: 115lb RD Assessment: (08/29) Visited pt in the room. Pt has a sitter. Per sitter, pt has been eating fine with ~50% meal intake. No GI complains reported. Pt didnt eat of the Ensure pudding. Will change supplement to Ensure Enlive chocolate. (08/25) Chart reviewed. Labs and meds reviewed. 87yo F, who was admitted from home for AMS and confusion x 3 days. Unable to obtain hx from pt due to AMS; no family on bedside. Per RN Silvia, son stated pt was eating better in the hospital than at home. No complains of nausea or vomiting. Negative CXR. CT abd/pel was pending. PCT recorded 100% of breakfast intake today. Will continue to monitor and follow. Current Diet: regular diet Malnutrition Evaluation (08/25/2018) Unable to evaluate at this time. Diet Education Needs Assessment: Diet education not indicated. Nutrition Care Level: low Signed: Naty Barrios, MS, RD, LD
--- NOTE | 2018-08-29 19:30 | NUR ---
Change of shift report endorsed to RON Olson. Pt is resting comfortably in bed, AAOx2 in no acute distress noted. IVF infusing well to RFA, denies pain or any discomfort at this time. 1:1 sitter at bedside instructed to use the call light for assistance.
[2018-08-29] MEDS: SIMVASTATIN 20 MG TAB PO SCH (22:28)
[2018-08-29] MEDS: MIRTAZAPINE 15 MG TAB PO SCH (22:28)
--- NOTE | 2018-08-29 22:45 | NUR ---
PT RESTING COMFORTABLY IN BED AT THIS TIME. APPLE SAUCE OFFERED, 4 BITES TAKEN. PT DENIES PAIN. BED IN LOCKED POSITION. CALL LIGHT IS IN REACH. SITTER IS AT BEDSIDE.
[2018-08-30 00:12] VITALS: BP 92/50
[2018-08-30] MEDS: MEROPENEM 500MG/ NS 50ML 50 ML IV SCH ×2 (02:42→09:35)
[2018-08-30 04:00] VITALS: BP 99/68
[2018-08-30 06:50] LABS: BASOPHILS # (AUTO) 0.1 (0.0-0.1); BASOPHILS % 0.9 % (0.0-1.0); EOSINOPHILS # (AUTO) 0.2 (0.0-0.4); EOSINOPHILS % 1.8 % (0.0-6.0); HEMATOCRIT 28.6 % (34.2-44.1); HEMOGLOBIN 9.2 g/dL (12.0-16.0); LYMPHOCYTES # (AUTO) 1.2 (1.0-3.2); LYMPHOCYTES % 14.5 % (18.0-39.1); MEAN CORPUSCULAR HEMOGLOBIN 28.5 pg (28-32); MEAN CORPUSCULAR HGB CONC 32.2 g/dL (31-35); MEAN CORPUSCULAR VOLUME 88.5 fL (81-99); MONOCYTES % 12.3 % (4.4-11.3); NEUTROPHILS # (AUTO) 5.6 (2.1-6.9); NEUTROPHILS % 68.5 % (38.7-80.0); PLATELET COUNT 180 x10e3/uL (140-360); RED BLOOD COUNT 3.23 x10e6/uL (3.6-5.1); RED CELL DISTRIBUTION WIDTH 16.4 % (11.7-14.4)
--- NOTE | 2018-08-30 07:00 | NUR ---
Bedside report and rounds done. no s/s of distress
[2018-08-30 07:09] LABS: ANION GAP 12.8 mmol/L (8-16); BLOOD UREA NITROGEN 9 mg/dL (7-26); BUN/CREATININE RATIO 13 (6-25); CALCIUM 9.9 mg/dL (8.4-10.2); CARBON DIOXIDE 23 mmol/L (22-29); CHLORIDE 108 mmol/L (98-107); CREATININE, SERUM 0.68 mg/dL (0.57-1.11); EST GLOMERULAR FILTRATION RATE > 60 ML/MIN (60-); GLUCOSE 61 mg/dL (74-118); MAGNESIUM 1.4 MG/DL (1.3-2.1); SODIUM 141 mmol/L (136-145)
[2018-08-30 07:13] LABS: POTASSIUM 2.8 mmol/L (3.5-5.1)
[2018-08-30] MEDS: LEVOTHYROXINE SODIUM 100 MCG TAB PO SCH (07:34)
[2018-08-30] MEDS ORDERED: POTASSIUM CHLORIDE 20 MEQ TAB CR PO STA ×2 (07:50)
--- NOTE | 2018-08-30 07:53 | NUR ---
notified RAFFAELE Robertson of critical lab potassium 2.8, phosphorous was also low 2.0. waiting for new orders/response
[2018-08-30 08:30] VITALS: BP 101/51
[2018-08-30 09:30] VITALS: BP 101/51
[2018-08-30] MEDS: ASPIRIN 81 MG CHEW TAB PO SCH (09:35)
[2018-08-30] MEDS: FUROSEMIDE INJ 10 MG/ML 2 ML VIAL IV SCH (09:35)
[2018-08-30] MEDS: MEGESTROL ACETATE 40 MG TAB PO SCH (09:36)
[2018-08-30] MEDS: PANTOPRAZOLE SOD 40 MG TABEC PO SCH (09:36)
[2018-08-30] MEDS: METOPROLOL TARTRATE 25 MG TAB PO SCH (09:36)
[2018-08-30] MEDS: ALLOPURINOL 100 MG TAB PO SCH (09:37)
[2018-08-30] MEDS: ENOXAPARIN 30 MG/0.3 ML SYR SC SCH (09:49)
--- NOTE | 2018-08-30 11:15 | NUR ---
PT ACCEPTED TO ROOM 52A UNDER DR [facility] CARE
[2018-08-30 12:00] VITALS: BP 98/61
--- NOTE | 2018-08-31 02:31 | Discharge Summary ---
ADMISSION DIAGNOSES: Urinary tract infection, present on admission; hypertension; hyperlipidemia; hypothyroidism; ambulatory dysfunction; poor appetite; gout; hypercalcemia. 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 PAST MEDICAL HISTORY: The patient has a history of hypertension, hyperlipidemia, hypothyroidism, and gout. PAST SURGICAL HISTORY: Bilateral carpal tunnel release, left arm fracture repair. FAMILY HISTORY: The patient's brother has cancer. SOCIAL HISTORY: Noncontributory. HOSPITAL COURSE: An 87-year-old female, who admitted to the ER by her son for increased confusion and poor appetite for 3 days. He denies nausea, vomiting, fever, falls, and also complains of abdominal pain. HPI and history per the patient's son, Louie, via the phone. On admission, the patient was started on Rocephin for an apparent UTI. Urine culture came back contaminated, so the antibiotics were completed. Blood cultures were negative. Chest x-ray on admission was negative. Due to the poor appetite, CT of the abdomen was done that showed a large infiltrating retroperitoneal mass extending into the small bowel mesentery and replacing the right kidney and involving other structures as described above. Findings concerning for lymphoma, thrombus in the IVC and SMV. Hematology/Oncology was consulted and the patient was started on Lovenox. Hematology/Oncology spoke with the patient's son, who decided that comfort care was what he wanted to do. Due to increased weakness, the patient will go to SNF per the patient's son's request. The patient will be discharged to SNF with no anticoagulation per Hematology/Oncology recommendation. Antibiotics were complete at the time of discharge. The patient will be discharged to [facility] to continuing care per son's request. Vital signs stable and the patient is afebrile. Dictated by Ailyn Clarke NP MD LUIS Ruiz/[place] /[id number]
== END 2018-08-30 15:03 | DRG 871 ==
LOC: ER 13:29 → ERHOLD 16:25 → MED/SURG3 17:28
PROVIDERS: ADMIT Internal Medicine; ATTEND Internal Medicine
DX: A41.9 Sepsis, unspecified organism (principal); I82.220 Acute embolism and thrombosis of inferior vena cava; I81 Portal vein thrombosis; G93.41 Metabolic encephalopathy; N39.0 Urinary tract infection, site not specified; E44.0 Moderate protein-calorie malnutrition; E87.2 Acidosis; I10 Essential (primary) hypertension; M10.9 Gout, unspecified; E87.6 Hypokalemia; R26.9 Unspecified abnormalities of gait and mobility; F03.90 Unspecified dementia, unspecified severity, without behavioral disturbance, psychotic disturbance, mood disturbance, and anxiety; E03.9 Hypothyroidism, unspecified; F09 Unspecified mental disorder due to known physiological condition; D64.9 Anemia, unspecified; E86.0 Dehydration; E83.52 Hypercalcemia; E78.5 Hyperlipidemia, unspecified; R19.09 Other intra-abdominal and pelvic swelling, mass and lump; E83.41 Hypermagnesemia
CPT/HCPCS: 36415; 71045; 74160; 80048; 80053; 80076; 80202; 81001; 82140; 82232; 82306; 82330; 82550; 82553; 82728; 82948; 83036; 83519; 83540; 83605; 83615; 83690; 83735; 83880; 83970; 84100; 84145; 84439; 84443; 84466; 84484; 85025; 85610; 85730; 87040; 87086; 87493; 88184; 93005; 96361; 96367; 97139; 99284; J0696; J1650; J1940; J2060; J3370; J3475; J3480; J7030; J7050; J7799; Q9967

== ENCOUNTER 2018-09-16 08:33 | Observation (INO) | payer MEDICARE ==
[~2018-09-16] VITALS: Ht 160 cm; Wt 59.9 kg
[~2018-09-16 08:33] MED LIST changes: +ALLOPURINOL100 MG PO; +FAMOTIDINE20 MG PO; +LOPRESSOR25 MG PO; +MIRTAZAPINE15 MG PO
[2018-09-16] MEDS ORDERED: SODIUM CHLORIDE 0.9% 1000ML 1,000 ML IV STA (08:46)
--- NOTE | 2018-09-16 09:50 | NUR ---
PER MD ORDERS, STRAIGHT CATH PT; PT URINE OUTPUT APPROX 550 CC; MD NOTIFIED; PER MD ORDERS INSERT PARRA CATHETHER DUE TO POSSIBLE OBSTRUCTION
--- NOTE | 2018-09-16 10:05 | NUR ---
PARRA CATHETER INSERTED PER MD ORDERS WITHOUT COMPLICATIONS; PT HAS APPROX 30 CC URINE OUTPUT POST INSERTION
--- NOTE | 2018-09-16 10:09 | Diagnostic Imaging Report ---
EXAM: Abdomen 3 Views INDICATION: ^ABD PAIN ^[id number] ^[id number] ^Y COMPARISON: CT abdomen and pelvis 08/25/2018 FINDINGS: Lines/tubes: None. Mild amount of stool in the colon. No dilated loops of small bowel. No renal calculi. Large right abdominal density consistent with retroperitoneal mass, unchanged. No abnormal soft tissue masses. Moderate degenerative changes in the lumbar spine and pelvis. IMPRESSION: 1. No bowel obstruction. 2. Increased density throughout the right upper abdomen consistent with this patient's retroperitoneal mass. Signed by: Dr. Jackie Hernandez M.D. on 09/16/2018 10:06 AM
[2018-09-16 10:38] LABS: BILIRUBIN,URINE NEGATIVE (NEGATIVE); CLARITY,URINE CLEAR (CLEAR); COLOR,URINE YELLOW (YELLOW); KETONES,URINE TRACE (NEGATIVE); LEUKOCYTE ESTERASE ,URINE NEGATIVE (NEGATIVE); NITRITE,URINE NEGATIVE (NEGATIVE); PROTEIN,URINE DIPSTICK TRACE (NEGATIVE); URINE UROBILINOGEN 0.2 mg/dL (0.2 - 1)
[2018-09-16 11:44] LABS: BASOPHILS # (AUTO) 0.1 (0.0-0.1); BASOPHILS % 0.8 % (0.0-1.0); EOSINOPHILS % 0.1 % (0.0-6.0); HEMATOCRIT 35.5 % (34.2-44.1); HEMOGLOBIN 11.2 g/dL (12.0-16.0); LYMPHOCYTES # (AUTO) 0.9 (1.0-3.2); LYMPHOCYTES % 6.7 % (18.0-39.1); MEAN CORPUSCULAR HGB CONC 31.5 g/dL (31-35); MONOCYTES # (AUTO) 1.1 (0.2-0.8); MONOCYTES % 7.9 % (4.4-11.3); NEUTROPHILS # (AUTO) 11.3 (2.1-6.9); NEUTROPHILS % 82.6 % (38.7-80.0); PLATELET COUNT 220 x10e3/uL (140-360); RED BLOOD COUNT 3.86 x10e6/uL (3.6-5.1); RED CELL DISTRIBUTION WIDTH 17.2 % (11.7-14.4)
[2018-09-16 12:00] LABS: AMORPHOUS SEDIMENT,URINE FEW (FEW); BACTERIA,URINE FEW /HPF; EPITHELIAL CELLS,URINE MODERATE /LPF; RBC,URINE 0-5 /HPF (0-5)
[2018-09-16 12:00] LABS: ALBUMIN 2.6 g/dL (3.5-5.0); ALBUMIN/GLOBULIN RATIO 0.9 (0.8-2.0); ANION GAP 16.1 mmol/L (8-16); CREATININE, SERUM 0.95 mg/dL (0.57-1.11); POTASSIUM 4.1 mmol/L (3.5-5.1)
--- NOTE | 2018-09-16 12:17 | NUR ---
RECEIVED CALL FROM LAB FOR CRITICAL REPORT, GLUCOSE 41 AND CALCIUM 15.1; INFORMED DR. BARGER AND PRIMARY NURSE RON MCKAY.
[2018-09-16 12:18] LABS: CALCIUM 15.1 mg/dL (8.4-10.2)
[2018-09-16] MEDS ORDERED: DEXTROSE 50% SYRINGE 50 ML IV ONE (12:22)
[2018-09-16] MEDS ORDERED: DEXTROSE 50% SYRINGE 50 ML IV STA (12:26)
[2018-09-16] MEDS ORDERED: DEXTROSE 5%/0.9% SOD CHL 1,000 ML IV ONE (13:30)
[2018-09-16] MEDS ORDERED: ONDANSETRON HCL INJ 2MG/ML 2ML 2 MG/ML VIAL IV PRN (13:30)
[2018-09-16] MEDS: CEFTRIAXONE SOD 1 GM/NS 50 ML 50 ML IV SCH (14:23)
[2018-09-16 15:42] VITALS: BP 112/63
[2018-09-16 16:28] VITALS: BP 112/63
[2018-09-16 16:31] VITALS: BP 112/63
[2018-09-16 16:55] VITALS: BP 112/63
[2018-09-16] MEDS ORDERED: DEXTROSE 50% SYRINGE 50 ML IV PRN (19:15)
--- NOTE | 2018-09-16 19:28 | NUR ---
Patient received lying in bed in a semi-graves position. AAO x 1. Family at bedside. Patient had no signs of pain, discomfort or respiratory distress. Patient has BLE edema +3. Both limbs cold to touch. Warm blankets draped over patient. Lovett catheter draining cloudy yellow urine by gravity. Telemetry recording of SR at 95. Fall precautions implemented. Call light within reach.
[2018-09-16 20:42] VITALS: BP 119/70
--- NOTE | 2018-09-16 22:25 | NUR ---
IV in left arm infiltrated. Old IV removed with tip intact. New IV inserted in right wrist 22G. Patient tolerated well.
[2018-09-17] VITALS (7 sets, daily range): BP systolic 97–122; BP diastolic 61–69
[2018-09-17] MEDS ORDERED: FUROSEMIDE INJ 10 MG/ML 4 ML VIAL IV ONE (07:30)
[2018-09-17] MEDS ORDERED: CEFTRIAXONE SOD 1 GM/NS 50 ML 50 ML IV SCH (07:30)
[2018-09-17] MEDS ORDERED: ASPIRIN 81 MG CHEW TAB PO SCH (09:00)
[2018-09-17] MEDS ORDERED: ALLOPURINOL 100 MG TAB PO SCH (09:00)
[2018-09-17] MEDS ORDERED: FAMOTIDINE 20 MG TAB PO SCH (09:00)
[2018-09-17] MEDS ORDERED: LEVOTHYROXINE SODIUM 100 MCG TAB PO SCH (09:00)
[2018-09-17] MEDS ORDERED: METOPROLOL TARTRATE 25 MG TAB PO SCH (09:00)
--- NOTE | 2018-09-17 11:37 | NUR ---
WOUND CARE NURSE INITIAL CONSULTATION. 87 YEAR OLD FEMALE ADMITTED TO [facility] WITH DX OF LYMPHOMA, ANOREXIA AND HYPOGLYCEMIA. HEAD TO TOE SKIN ASSESSMENT PERFORMED TODAY. 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 4+PITTING EDEMA TO BILATERAL LOWER AND LEFT UPPER EXTREMITIES IS PRESENT WELL A 3X2CM DISCOLORATION TO LEFT LATERAL ANKLE. NO OTHER AREAS OF CONCERN NOTED AT THIS TIME. NO S/S OF INFECTION. LABS: WBC: 13.74 ALB: 2.6 GLUCOSE: 87 RECOMMENDATIONS CONTINUE WITH ALTERNATING LOW AIR LOSS MATTRESS PROVIDE PT WITH BILATERAL HEEL PROTECTORS AND PILLOW SUSPENSIONS. TURN PT EVERY TWO HOURS AND PRN. ELEVATE BILATERAL LOWER AND LEFT UPPER EXTREMITIES. APPLY VENELEX OINTMENT TO SACRUM AND COVER WITH FOAM DRESSING DAILY AND PRN. APPLY FOAM DRESSING TO LEFT LATERAL ANKLE AND ASSESS DAILY THANKS FOR THIS CONSULTATION. Addendum: 09/17/18 at 1145 by Jennie Noyola RN Amended: Links added.
[2018-09-17] MEDS: CEFTRIAXONE SOD 1 GM/NS 50 ML 50 ML IV SCH (13:33)
[2018-09-17] MEDS ORDERED: BALSAM PERU/CASTOR OIL 60 GM OINT...G. TP SCH (14:00)
--- NOTE | 2018-09-17 15:16 | NUR ---
CM SPOKE TO PATIENT SON OVER THE PHONE REGARDING PATIENT DISCHARGE PLAN. PATIENT WITH HOSPICE ORDERS. PER PATIENT SON'S REQUEST CHOICE SIGNED FOR [facility]. CLINICAL PICKED UP BY ANA LIAISON FOR [facility]. PATIENT ACCEPTED AND TRANSFERRING TO: [facility] Address: [address], [place] [address] WITH HOSPICE SERVICES FROM: [facility] (P) [phone] (F) [phone] Addendum: 09/17/18 at 1526 by Nasima Leung CM RTF GIVEN TO RN. AMBULANCE TO PLAYGROUND OFFICIAL PATIENT AT 4:30 PM
--- NOTE | 2018-09-17 15:28 | NUR ---
DISCHARGE DISPOSITION: PATIENT ACCEPTED AND TRANSFERRING TO [facility] WITH HOSPICES SERVICES: [facility] Address: [address], [place] [address] [facility] WITH HOSPICE SERVICES FROM: [facility] (P) [phone] (F) [phone]
--- NOTE | 2018-09-17 15:58 | NUR ---
report called to [facility], spoke to nurse Debbie. son aware of transfer to [place] on hospice today. patient will go to room 52A.
--- NOTE | 2018-09-17 16:30 | NUR ---
per Ailyn Clarke CASHIER MANAGER, patient to d/c to [facility] with d/c med rec which has been finalized and not the transfer MAR. copy of med rec with continued meds placed in transfer packet to go with patient.
--- NOTE | 2018-09-17 17:00 | NUR ---
PIV removed with tip intact. only 1 personal blanket noted in room and sent with patient via stretcher EMS. patient discharged to [facility] on hospice. Ailyn Clarke NP aware.
--- NOTE | 2018-09-17 19:57 | Discharge Summary ---
ADMISSION DIAGNOSES: Failure to thrive with poor appetite and hypoglycemia, retroperitoneal mass, hypertension, hyperlipidemia, gout, hypothyroidism, urinary tract infection present on admission. DISCHARGE DIAGNOSES: Failure to thrive with poor appetite and hypoglycemia, retroperitoneal mass, hypertension, hyperlipidemia, gout, hypothyroidism, urinary tract infection present on admission. MEDICAL HISTORY: Hypertension, hyperlipidemia, hypothyroidism, gout, IVC thrombus and retroperitoneal mass. SURGICAL HISTORY: Bilateral carpal tunnel release, and left arm fracture repair. SOCIAL HISTORY: Noncontributory. FAMILY HISTORY: The patient's brother had cancer. HOSPITAL COURSE: An 87-year-old female recently diagnosed with a retroperitoneal mass and IVC thrombus, was brought to the ER for poor appetite and failure to thrive. Her son initially requested fci placement after finding out about the mass, but now due to the patient's declining health he wants hospice placement. On admission, the patient was started on a dextrose IV and given D50 p.r.n. hypoglycemia less than 60. Case management was consulted for hospice. The patient will discharge to [facility]. She will continue the same chronic medications. The patient's son understands discharge instructions and agrees to plan. Vital signs stable. The patient afebrile. Dictated by Ailyn Clarke NP MD LUIS Ruiz/SHARON /[id number]
[2018-09-17] MEDS ORDERED: MIRTAZAPINE 15 MG TAB PO SCH (21:00)
[2018-09-17] MEDS ORDERED: SIMVASTATIN 20 MG TAB PO SCH (21:00)
[2018-09-18] MEDS ORDERED: LEVOTHYROXINE SODIUM 100 MCG TAB PO SCH (06:00)
== END 2018-09-17 16:58 | disposition hospice, home (50) ==
LOC: ER 08:33 → ERHOLD 13:41 → MED/SURG2 15:04
PROVIDERS: ADMIT Internal Medicine; ATTEND Internal Medicine
DX: I82.220 Acute embolism and thrombosis of inferior vena cava (principal); R62.7 Adult failure to thrive; I10 Essential (primary) hypertension; E03.9 Hypothyroidism, unspecified; M10.9 Gout, unspecified; R19.00 Intra-abdominal and pelvic swelling, mass and lump, unspecified site; N39.0 Urinary tract infection, site not specified; Z68.23 Body mass index [BMI] 23.0-23.9, adult
CPT/HCPCS: 36415 ×2; 51700; 74022; 80053; 81001; 82948 ×2; 85025; 87086; 99285; G0378 ×2; J0696 ×2; J1940; J7030; J7042; J7799 ×2